=== PATIENT | female | born 1960 | race Caucasian/White ===

== ENCOUNTER → 2020-05-03 10:23 | Outpatient (BNVA) | payer MEDICAID, SELFPAY | PROVIDERS: Referring Provider Nurse Practitioner Family; Visit Provider Podiatrist Foot & Ankle Surgery | DX: M79.671 Pain in right foot (principal); M79.672 Pain in left foot; M19.072 Primary osteoarthritis, left ankle and foot; M19.071 Primary osteoarthritis, right ankle and foot; M21.41 Flat foot [pes planus] (acquired), right foot; M77.32 Calcaneal spur, left foot; M77.31 Calcaneal spur, right foot | CPT/HCPCS: 73630 ==

== ENCOUNTER 2020-08-02 15:32 | Outpatient (CLI) | payer MEDICAID, SELFPAY | END 2020-08-02 15:33 | disposition home or self-care (01) | LOC: SPT 08-03 09:33 | PROVIDERS: Visit Provider Specialist | DX: Z46.89 Encounter for fitting and adjustment of other specified devices (principal); G56.03 Carpal tunnel syndrome, bilateral upper limbs | CPT/HCPCS: 97760; L3908 ==

== ENCOUNTER → 2020-08-02 15:48 | Outpatient (BNVA) | payer MEDICAID, SELFPAY | PROVIDERS: Referring Provider Family Medicine; Visit Provider Specialist | DX: M25.532 Pain in left wrist (principal) | CPT/HCPCS: 73110 ==

== ENCOUNTER → 2020-08-08 14:27 | Outpatient (BNVA) | payer MEDICAID, SELFPAY | PROVIDERS: Visit Provider Specialist | DX: G56.01 Carpal tunnel syndrome, right upper limb (principal) | CPT/HCPCS: 87635 ==

== ENCOUNTER → 2020-12-14 10:23 | Outpatient (BNVA) | payer MEDICAID, SELFPAY | PROVIDERS: Visit Provider Specialist | DX: Z01.812 Encounter for preprocedural laboratory examination (principal); Z20.822 Contact with and (suspected) exposure to COVID-19 | CPT/HCPCS: 87635 ==

== ENCOUNTER 2020-12-17 08:33 | Day surgery (SDC) | payer MEDICAID, SELFPAY ==
[2020-12-16 14:37] VITALS: BMI 33.9
[2020-12-17 08:48] VITALS: BP 104/70; PULSE 78; RESP 18; TEMP 36.5; O2SAT 99
[2020-12-17] MEDS: CELEcoxib 200 mg Capsule 400 MG PO (09:03)
--- NOTE | 2020-12-17 09:08 | P.HPUD_ITS ---
Surgery/Procedure H&P Update DATE OF PROCEDURE: December 17, 2020 DATE H&P PERFORMED: 12/01/20 H&P UPDATE INFORMATION: I have reviewed H&P completed within last 30 days, I have examined patient prior to procedure and H&P is in [facility] [place] EMR on date indicated PREOP DIAGNOSIS: Right carpal tunnel syndrome PLANNED PROCEDURE: Operation Date: 12/17/20 09:55 Proposed Procedures p right Carpal Tunnel Release 64220 g56.01(Right) - Lilian Alberto MD Related Problem List Diagnoses (1) Carpal tunnel syndrome on right:
[2020-12-17] MEDS: acetaminophen 1,000 MG/100 ML PIGGYBACK 400 MG IV (09:35)
[2020-12-17 09:38] LABS: Glucose Point of Care 197 mg/dL (70-110)
[2020-12-17] MEDS: sodium chloride 0.9% 1,000 ML 30 ML IV (09:40)
--- NOTE | 2020-12-17 09:46 | P.ANESASSM_ITS ---
Pre-Anesthetic Assessment Pre-Anesthetic Assessment: Height/Weight: Height 1.83 m Weight 113.398 kg Temp Pulse Resp BP Pulse Ox 97.7 F 78 18 104/70 99 12/17/20 08:48 12/17/20 08:48 12/17/20 08:48 12/17/20 08:48 12/17/20 08:48 Preop Diagnosis: Right carpal tunnel syndrome Proposed Procedure: Operation Date: 12/17/20 09:55 Proposed Procedures p right Carpal Tunnel Release 41192 g56.01(Right) - Lilian Alberto MD Was Beta Ronen taken within 24 hours: N/A Was Clonidine taken within 24 hours: N/A Last intake: Intake Last Liquid Date 12/17/20 Last Liquid Time 06:00 Last Solid Date 12/16/20 Last Solid Time 19:00 Social: Social History: No alcohol and No tobacco Exam: Pre-Anes Outpt Exam: alert, oriented x 3, clear to auscultation bila terally and regular rate & rhythm Airway: Submandibular: WNL Cervical ROM: WNL MP: 2 Dentition: Full CV/HEM: CV/HEM: CAD and HTN Metabolic: Metabolic: DM, Morbid obesity and Thyroid Anesthetic Plan: ASA status: 3 Anesthesia: MAC and Regional (specify below) (Ria springer) Risk of > 500 ml blood loss (7ml/kg in children): No Meds/Allergies Current Medications: Current Medications Generic Name Dose Route Start Last Admin Trade Name Freq PRN Reason Stop Dose Admin Sodium Chloride 1,000 mls @ 30 ml s/hr 12/17/20 08:45 12/17/20 09:40 Sodium Chloride 0.9% IV 12/18/20 08:44 30 mls/hr .Q24H CHUY Administration PFSH Anesthesia PFSH: Medical History CHF (congestive heart failure) History of sepsis Hypercholesteremia Hypertension Leg length discrepancy Primary osteoarthritis of hips, bilateral Thyroid disease Surgical History 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 Family History Other Cancer Diabetes Hypertension Stroke Denies family history of CAD (coronary artery disease) Clotting disorder Dementia Hyperlipidemia Psychiatric illness Chronic kidney disease (CKD) Suicide Anesthesia complication Bleeding disorder Family history of premature coronary artery disease Lung disease Social History Smoking and tobacco status: former smoker Alcohol intake: former Lives independently: Yes Household members: spouse Marital status: Number of children: 2 Data Anesthesia Other Labs: Laboratory Results - last 48 hr 12/17/20 09:30 POC Glucose 197 H Cardiac Studies: No Data to Display
[2020-12-17 10:25] VITALS: BP 105/62; PULSE 80; RESP 16; TEMP 36.7; O2SAT 99
[2020-12-17 10:30] VITALS: BP 114/66; PULSE 65; RESP 16; O2SAT 97
--- NOTE | 2020-12-17 10:30 | P.OP_ITS ---
Operative Report Date of procedure: December 17, 2020 Pre-op Diagnosis: Right carpal tunnel syndrome Post-op diagnosis: same Procedure Done: Right Carpal Tunnel Release Implants: None Specimens removed/disposition: None Pathology: none sent Surgeon: Lilian Alberto Roller Hand: None Anesthesia: MAC (With [place] Block, ASA 3) Estimated blood loss (mL): 5 Tourniquet time (min): 31 Tourniquet time: At 250 mmHg IV fluids (mL): 300 Urine output (mL): 0 Urine output: No Ortez Complications: None Findings: Compression across the carpal canal Condition: stable Disposition: PACU (Then discharged to same-day surgery and subsequent discharge to home) Brief History: This 60-year-old woman presented with complaints of right and left carpal tunnel syndrome. She had significant numbness and tingling with limitations in activities of daily living secondary to the numbness in her hands. Hands are painful for her. After discussion, she wished to proceed with carpal tunnel release. Risks and complications were discussed with her. Consents were signed preoperatively and questions were answered. Procedure: The patient was brought to the operating theater. The patient had a Ria block with MAC, ASA 3. The tourniquet was elevated to 250 mmHg for a total tourniquet time of 31 minutes. The patient was also given Ancef 2 g preoperatively. The arm was then prepped and draped with DuraPrep in usual fashion with the arm draped free. A surgical pause was performed. At the time, the surgical pause, we confirmed the site and side of surgery. We also confirmed the patient's identity, appropriate and timely administration of preoperative antibiotics and preoperative surgical markings. An incision was then made along the thenar crease. The incision crossed the wrist joint in a curvilinear fashion. Dissection continued through skin and soft tissues using a scalpel. The palmaris longus was identified along with the transverse carpal ligament. Each of these was released carefully to avoid injury to the median nerve. We were able to dissect gently into the carpal canal which was noted to be quite tight with significant compression across the median nerve. The nerve was visualized and was an hourglass shape. The canal was subsequently palpated to assure there was no bony encroachment upon the canal. There was a quite thickened fibrous tissue within the canal, and this was opened longitudinally as well. The canal was then palpated distally and proximally to assure that my small finger was passed easily without impingement. Finding this to be so, attention was directed to closure. The wound was irrigated with ropivacaine plain. It was then closed with 3-0 nylon in an interrupted mattress fashion. Sterile dressing was then placed consisting of OpSite, fluffed fluffs, sterile soft roll, a volar splint, and an Michael wrap. The tourniquet was released after 31 minutes. There were no complications. There were no specimens. The procedure was well tolerated. Plan is the patient will be discharged home. Associated Problem List Diagnoses (1) Carpal tunnel syndrome on right:
[2020-12-17 10:35] VITALS: BP 114/66; PULSE 61; RESP 18; TEMP 36.5; O2SAT 96
[2020-12-17 10:45] VITALS: BP 128/71; PULSE 62; RESP 18; TEMP 36.2; O2SAT 97
[2020-12-17] MEDS: HYDROcodone-acetaminophen 5-325 mg Tablet 1 TAB PO (11:02)
[2020-12-17 11:13] VITALS: BP 122/68; PULSE 70; RESP 18; TEMP 36.6; O2SAT 96
--- NOTE | 2020-12-17 14:22 | ANE.PACU2 ---
Inpatient post-anesthesia follow up: Airway intact: Yes Vital signs: Temperature 97.8 F Pulse Rate 70 Respiratory Rate 18 Blood Pressure 122/68 Pulse Oximetry 96 Oxygen Delivery Me thod Room Air Oxygen Flow Rate Fraction of Inspir ed Oxygen Hydration adequate: Yes Nausea and vomiting: No Pain level: 1 Mental status: Baseline
== END 2020-12-17 11:39 | disposition home or self-care (01) ==
PROVIDERS: Visit Provider Specialist
PROC: (CPT 64721; principal; 2020-12-17 09:45)
DX: G56.01 Carpal tunnel syndrome, right upper limb (principal); I25.10 Atherosclerotic heart disease of native coronary artery without angina pectoris; I11.0 Hypertensive heart disease with heart failure; I50.9 Heart failure, unspecified; E11.9 Type 2 diabetes mellitus without complications; E66.01 Morbid (severe) obesity due to excess calories; Z68.33 Body mass index [BMI] 33.0-33.9, adult; E78.00 Pure hypercholesterolemia, unspecified; Z87.891 Personal history of nicotine dependence; Z79.82 Long term (current) use of aspirin
CPT/HCPCS: 64721; 36416; 82962; 96365; J0690; J2250; J2704; J3010; J3490; J7030

== ENCOUNTER → 2021-03-29 10:59 | Outpatient (BNVA) | payer MEDICAID, SELFPAY | PROVIDERS: Visit Provider Specialist | DX: G56.01 Carpal tunnel syndrome, right upper limb (principal) | CPT/HCPCS: 73110 ==

== ENCOUNTER → 2021-06-06 15:30 | Outpatient (BNVA) | payer MEDICAID, SELFPAY | PROVIDERS: Visit Provider Specialist | DX: G56.02 Carpal tunnel syndrome, left upper limb (principal) | CPT/HCPCS: 87635 ==

== ENCOUNTER 2021-06-10 05:49 | Day surgery (SDC) | payer MEDICAID, SELFPAY ==
[2021-06-09 13:34] VITALS: BMI 32.5
[2021-06-10] VITALS (8 sets, daily range): BP systolic 107–169; BP diastolic 62–77; PULSE 65–79; RESP 12–21; TEMP 34.7–36.8; O2SAT 93–99
--- NOTE | 2021-06-10 06:50 | P.HPUD_ITS ---
Surgery/Procedure H&P Update DATE OF PROCEDURE: June 10, 2021 DATE H&P PERFORMED: 06/06/21 H&P UPDATE INFORMATION: I have reviewed H&P completed within last 30 days, I have examined patient prior to procedure, No changes to prior documentation and H&P is in [facility] [place] EMR on date indicated PREOP DIAGNOSIS: Left carpal tunnel syndrome PLANNED PROCEDURE: Operation Date: 06/10/21 07:00 Proposed Procedures p Carpal Tunnel Release [id number] G56.00(Left) - Lilian Alberto MD Related Problem List Diagnoses (1) Carpal tunnel syndrome on left:
[2021-06-10] MEDS: CELEcoxib 200 mg Capsule 400 MG PO (07:00)
[2021-06-10] MEDS: sodium chloride 0.9% 1,000 ML 30 ML IV (07:02)
[2021-06-10] MEDS: acetaminophen 1,000 MG/100 ML PIGGYBACK 400 MG IV (07:02)
--- NOTE | 2021-06-10 07:07 | PC.NURSE ---
IV inserted with ultrasound assistance by Dr. Quintana.
--- NOTE | 2021-06-10 07:10 | ANES.PREANE2 ---
Pre-Anesthetic Assessment Pre-Anesthetic Assessment: Height/Weight: Height 1.83 m Weight 108.862 kg Temp Pulse Resp BP Pulse Ox 94.5 F L 79 16 142/77 99 06/10/21 06:28 06/10/21 06:28 06/10/21 06:28 06/10/21 06:28 06/10/21 06:28 Preop Diagnosis: Left carpal tunnel syndrome Proposed Procedure: Operation Date: 06/10/21 07:00 Proposed Procedures p Carpal Tunnel Release 68075 G56.00(Left) - Lilian Alberto MD Familial anesthetic complications: None Was Beta Ronen taken within 24 hours: Yes Was Clonidine taken within 24 hours: N/A Last intake: Intake Last Liquid Date 06/09/21 Last Liquid Time 19: Last Solid Date 06/09/21 Last Solid Time 19:00 Social: Social History: No alcohol and No tobacco Exam: Pre-Anes Outpt Exam: alert, oriented x 3, clear to auscultation bilaterally and regular rate & rhythm Airway: MP: 2 Dentition: Full CV/HEM: CV/HEM: CAD, CHF and HTN Metabolic: Metabolic: Morbid obesity and Thyroid Anesthetic Plan: ASA status: 3 Anesthesia: General Risk of > 500 ml blood loss (7ml/kg in children): No PFSH Anesthesia PFSH: Medical History CHF (congestive heart failure) History of sepsis Hypercholesteremia Hypertension Leg length discrepancy Primary osteoarthritis of hips, bilateral Thyroid disease Surgical History 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
[2021-06-10 07:11] LABS: Glucose Point of Care 156 mg/dL (70-110)
[2021-06-10] MEDS: ondansetron 2 mg/ML SDV 2 mL 4 MG IVP (08:50)
--- NOTE | 2021-06-10 09:07 | P.OP_ITS ---
Operative Report Date of procedure: June 10, 2021 Pre-op Diagnosis: Left carpal tunnel syndrome Post-op diagnosis: same Post-op Findings: Significant compression across the median nerve. Procedure Done: Left carpal tunnel release Pathology: none sent Surgeon: Lilian Alberto Anesthesia: General (LMA, ASA 3, following difficult IV) Estimated blood loss (mL): 0 Tourniquet time (min): 26 Tourniquet time: At 250 mmHg IV fluids (mL): 400 Urine output (mL): 0 Urine output: No Ortez Complications: None Findings: Very tight carpal canal with significant compression across the median nerve and resultant discoloration and hourglass deformity Condition: stable Disposition: PACU (Then to same-day surgery for discharge to home) Brief History: This 61-year-old woman presented with complaints of left carpal tunnel syndrome which impacted her activities of daily living. This was noted to be quite severe regarding the symptoms. She has previously undergone right carpal tunnel release and has recovered from this. After discussion, the patient did wish to proceed with left carpal tunnel release. Risks and complications were discussed with her. Questions were answered. Consents were signed. She was scheduled for the above procedure. Procedure: The patient was brought to the operating theater. The patient had a general anesthetic with LMA, ASA 3. A general anesthetic was given rather than a [place] block secondary to difficult IV access. The tourniquet was elevated to 250 mmHg for a total tourniquet time of 26 minutes. The patient was also given Ancef 2 g preoperatively. The arm was then prepped and draped with DuraPrep in usual fashion with the arm draped free. A surgical pause was performed. At the time of the surgical pause, we confirmed the site and side of surgery. We also confirmed the patient's identity, appropriate and timely administration of preoperative an tibiotics and preoperative surgical markings. An incision was then made along the thenar crease. The incision crossed the wrist joint in a curvilinear fashion. Dissection continued through skin and soft tissues using a scalpel. The palmaris longus was identified along with the transverse carpal ligament. Each of these was released carefully to avoid injury to the median nerve. We were able to dissect gently into the carpal canal which was noted to be quite tight with significant compression across the median nerve. The nerve was visualized and was an hourglass shape. The canal was subsequently palpated to assure there was no bony encroachment upon the canal. There was a quite thickened fibrous tissue within the canal, and this was opened longitudinally as well. The canal was then palpated distally and proximally to assure that my small finger was passed easily without impingement. Finding this to be so, attention was directed to closure. The wound was irrigated with ropivacaine plain. It was then closed with 3-0 nylon in an interrupted mattress fashion. Sterile dressing was then placed consisting of Dermabond, OpSite, fluffed fluffs, sterile soft roll, a volar splint, and an Michael wrap. The tourniquet was released after 26 minutes. There were no complications. There were no specimens. The procedure was well tolerated. Plan is the patient will be discharged home. Associated Problem List Diagnoses (1) Carpal tunnel syndrome on left:
--- NOTE | 2021-06-10 12:24 | ANE.PACU2 ---
Inpatient post-anesthesia follow up: Airway intact: Yes Vital signs: Temperature 98.2 F Pulse Rate 65 Respiratory Rate 18 Blood Pressure 146/75 Pulse Oximetry 96 Oxygen Delivery Me thod Room Air Oxygen Flow Rate Fraction of Inspir ed Oxygen Hydration adequate: Yes Nausea and vomiting: No Pain level: 2 Mental status: Baseline
== END 2021-06-10 10:00 | disposition home or self-care (01) ==
PROVIDERS: PCP Family Medicine; Visit Provider Specialist
PROC: (CPT 64721; principal; 2021-06-10 07:00)
DX: M25.532 Pain in left wrist (principal); I10 Essential (primary) hypertension; E07.9 Disorder of thyroid, unspecified
CPT/HCPCS: 64721; 36416; 82962; 96365; J0690; J2250; J2405; J2704; J3010; J3490; J7030

== ENCOUNTER → 2021-08-10 12:41 | Outpatient (BNVA) | payer MEDICAID, SELFPAY | PROVIDERS: PCP Family Medicine; Visit Provider Internal Medicine | DX: M35.3 Polymyalgia rheumatica (principal); H35.30 Unspecified macular degeneration; Z11.59 Encounter for screening for other viral diseases; Z11.1 Encounter for screening for respiratory tuberculosis; E11.9 Type 2 diabetes mellitus without complications; Z79.52 Long term (current) use of systemic steroids; Z87.891 Personal history of nicotine dependence | CPT/HCPCS: 99204 ==

== ENCOUNTER 2021-08-11 14:06 | Outpatient (CLI) | payer MEDICAID, SELFPAY ==
[2021-08-11 15:40] LABS: Creatine Phosphokinase 85 U/L (26-192)
[2021-08-11 15:52] LABS: Bilirubin Urine Neg (Negative); Blood Urine Neg (Negative); Glucose Urine UA 1+ (Normal); Ketones Urine Negative (Negative); Nitrate Urine Negative (Negative); Protein Urine Neg (Negative); Specific Gravity, Urine 1.005 (1.005-1.030); Urine Appearance Clear (CLEAR); Urine Color Straw (Yellow); Urobilinogen Urine Norm (Negative); pH Urine 7 (5-7)
[2021-08-11 15:53] LABS: Add Urine Microscopic? YES; Leukocyte Esterase Urine 1+ (Negative); WBC Urine 0-4 /hpf (0-5)
[2021-08-11 16:03] LABS: Hepatitis B Core AB, Total Non-Reactive (Nonreactive); Hepatitis B Surface Antigen Non-Reactive (Nonreactive); Hepatitis C Virus Antibody Reactive (Nonreactive)
[2021-08-11 21:38] LABS: C Reactive Protein 3.3 mg/L (0.0-4.9)
[2021-08-12 11:17] LABS: COMPLEMENT COMPONENT C3C 125 mg/dL (83-193); COMPLEMENT COMPONENT C4C 40 mg/dL (15-57)
[2021-08-12 12:52] LABS: Cyclic Citrullinated Peptide <16 UNITS
[2021-08-12 13:22] LABS: COMPLEMENT, TOTAL (CH50) >60 U/mL (31-60)
[2021-08-13 09:14] LABS: HEP C RNA Viral Load Quant <1.18 NOT DETECTED Log IU/mL (NOT DETECTED); HEP C RNA Viral Load Quant <15 NOT DETECTED IU/mL (NOT DETECTED)
[2021-08-15 12:17] LABS: Quantiferon Mitogen >10.00 IU/mL; Quantiferon Nil 0.01 IU/mL; Quantiferon TB Gold NEGATIVE (NEGATIVE)
[2021-08-17 15:07] LABS: THYROID PEROXIDASE ANTIBODIES 49 IU/mL (<9)
[2021-08-18 13:27] LABS: CENTROMERE B ANTIBODY <1.0 NEG AI (<1.0 NEG); JO-1 ANTIBODY <1.0 NEG AI (<1.0 NEG); RNP ANTIBODY <1.0 NEG AI (<1.0 NEG); SCL-70 ANTIBODY <1.0 NEG AI (<1.0 NEG); SJOGREN'S ANTIBODY (SS-A) <1.0 NEG AI (<1.0 NEG); SM ANTIBODY <1.0 NEG AI (<1.0 NEG); SS-B <1.0 NEG AI (<1.0 NEG)
[2021-08-18 15:33] LABS: ANA SCREEN, IFA NEGATIVE (NEGATIVE)
== END 2021-08-11 14:07 | disposition home or self-care (01) ==
PROVIDERS: PCP Family Medicine; Visit Provider Internal Medicine
DX: M79.643 Pain in unspecified hand (principal); Z11.59 Encounter for screening for other viral diseases; Z11.1 Encounter for screening for respiratory tuberculosis
CPT/HCPCS: 81001; 82550; 83516; 84182; 86140; 86160; 86162; 86200; 86235; 86255; 86376; 86480; 86704; 86803; 87340; 87522

== ENCOUNTER → 2021-08-23 10:18 | Outpatient (BNVA) | payer MEDICAID, SELFPAY | PROVIDERS: PCP Family Medicine; Visit Provider Podiatrist Foot & Ankle Surgery | DX: M79.671 Pain in right foot (principal) | CPT/HCPCS: 73630 ==

== ENCOUNTER → 2021-08-31 12:43 | Outpatient (BNVA) | payer MEDICAID, SELFPAY | PROVIDERS: PCP Family Medicine; Visit Provider Internal Medicine | DX: M35.3 Polymyalgia rheumatica (principal); M79.643 Pain in unspecified hand; R76.8 Other specified abnormal immunological findings in serum; H35.30 Unspecified macular degeneration | CPT/HCPCS: 99214 ==

== ENCOUNTER 2021-09-20 15:04 | Outpatient (CLI) | payer MEDICAID, SELFPAY ==
[2021-09-20 15:40] LABS: Basophils % 0.3 %; Eosinophils % 0.2 %; Hematocrit 40.1 % (37.0-47.0); Hemoglobin 11.9 g/dL (11.5-15.3); Lymphocytes % 9.1 %; Mean Corpuscular HGB Conc 29.7 g/dL (30.0-36.0); Mean Corpuscular Hemoglobin 27.2 pg (28.0-34.0); Mean Corpuscular Volume 91.6 fl (81-99); Mean Platelet Volume 10.2 fL (7.4-10.4); Monocytes # 0.3 10^3/uL (0.2-0.9); Monocytes % 2.9 %; Nucleated Red Blood Cells % 0 %; Platelet Count 210 10^3/cmm (130-400); Red Blood Count 4.38 10^6/uL (4.1-5.3); Red Cell Distribution Width 17.2 % (12.1-15.1); White Blood Count 11.5 10^3/uL (4.0-10.0)
[2021-09-20 15:55] LABS: Erythrocyte Sedimentation Rate 11 mm/hr (0-15)
--- NOTE | 2021-09-20 16:00 | XR_ITS ---
WS: [id number] Right hand, 2 views, 09/20/2021 Clinical Data: M35.3 - Polymyalgia rheumatica Comparison: Right wrist, 03/29/2021. Findings: No fractures or dislocations are seen. The soft tissues are unremarkable. The joint space s are normal No periarticular demineralization or calcifications are seen. XR/XR hand RT 2V [id number] Impression: Negative right hand.
--- NOTE | 2021-09-20 16:00 | XR_ITS ---
WS: [email or web address] Left hand, 2 views, 09/20/2021 Clinical Data: M35.3 - Polymyalgia rheumatica Comparison: Left wrist, 08/02/2020. Findings: No fractures or dislocations are seen. The soft tissues are unremarkable. The joint spaces are normal No periarticular demineralization or calcifications are seen. XR/XR hand LT 2V [id number] Impression: Negative left hand.
--- NOTE | 2021-09-20 16:00 | XR_ITS ---
WS: [id number] Sacroiliac joints, 3 views, 09/20/2021 Clinical Data: L40.9 - Psoriasis, unspecified Comparison: None. Findings: The SI joints are normal in width. No erosion, sclerosis or destruction is seen. There are no fractur es or dislocations. There is unilateral left laminar defect at L5 which is a normal variation. The adjacent visualized pelvis and hips are unremarkable. XR/XR sacroiliac jts m 3V [id number] Impression: Negative SI joints.
[2021-09-20 16:06] LABS: Alanine Aminotransferase 33 U/L (0-33); Albumin Level 3.9 g/dL (3.5-5.2); Alkaline Phosphatase 62 IU/L (35-105); Anion Gap 16.6 (5-19); Aspartate Amino Transferase 27 U/L (0-32); Blood Urea Nitrogen 29 mg/dL (6-20); C Reactive Protein 4.2 mg/L (0.0-4.9); Calcium 9.1 mg/dL (8.5-10.5); Carbon Dioxide 21 mmol/L (22-29); Chloride 103 mmol/L (98-107); Globulin 2.4 g/dL (1.3-4.6); Glomerular Filtration Rate 64.1 mL/min (90-130); Glucose 116 mg/dL (65-115); Osmolality Calculated 289 mOsm/kg (285-295); Potassium 4.6 mmol/L (3.5-5.1); Sodium 136 mmol/L (136-145); Total Bilirubin 0.3 mg/dL (0.15-1.2); Total Protein 6.3 g/dL (6.6-8.7)
== END 2021-09-20 15:05 | disposition home or self-care (01) ==
LOC: RAD 15:05 → LAB 15:07
PROVIDERS: PCP Family Medicine; Visit Provider Internal Medicine
DX: M25.50 Pain in unspecified joint (principal); M35.3 Polymyalgia rheumatica; Z79.899 Other long term (current) drug therapy; H35.30 Unspecified macular degeneration; L40.9 Psoriasis, unspecified; R76.8 Other specified abnormal immunological findings in serum
CPT/HCPCS: 36415; 72202; 73120; 80053; 85025; 85651; 86140

== ENCOUNTER → 2021-10-19 13:59 | Outpatient (BNVA) | payer MEDICAID, SELFPAY | PROVIDERS: PCP Family Medicine; Visit Provider Internal Medicine | DX: M35.3 Polymyalgia rheumatica (principal); R21 Rash and other nonspecific skin eruption; H35.30 Unspecified macular degeneration; R63.5 Abnormal weight gain; Z68.34 Body mass index [BMI] 34.0-34.9, adult; Z87.891 Personal history of nicotine dependence | CPT/HCPCS: 99214 ==

== ENCOUNTER 2021-10-21 13:38 | Outpatient (CLI) | payer MEDICAID, SELFPAY ==
[2021-10-21 14:29] LABS: Basophils % 0.2 %; Hematocrit 40.4 % (37.0-47.0); Hemoglobin 12.6 g/dL (11.5-15.3); Lymphocytes # 1.4 10^3/uL (0.8-4.8); Lymphocytes % 11.6 %; Mean Corpuscular HGB Conc 31.2 g/dL (30.0-36.0); Mean Corpuscular Hemoglobin 28.8 pg (28.0-34.0); Mean Corpuscular Volume 92.2 fl (81-99); Mean Platelet Volume 10.7 fL (7.4-10.4); Monocytes # 0.4 10^3/uL (0.2-0.9); Monocytes % 2.9 %; Neutrophils # 10.47 10^3/uL (1.8-7.7); Neutrophils % 84.7 %; Nucleated Red Blood Cells % 0 %; Platelet Count 216 10^3/cmm (130-400); Red Blood Count 4.38 10^6/uL (4.1-5.3); Red Cell Distribution Width 17.1 % (12.1-15.1); White Blood Count 12.4 10^3/uL (4.0-10.0)
[2021-10-21 14:34] LABS: Erythrocyte Sedimentation Rate 10 mm/hr (0-15)
[2021-10-21 14:43] LABS: Add Urine Microscopic? YES; Bilirubin Urine Neg (Negative); Blood Urine Neg (Negative); Glucose Urine UA Norm (Normal); Ketones Urine Negative (Negative); Leukocyte Esterase Urine Negative (Negative); Nitrate Urine Negative (Negative); Protein Urine Neg (Negative); Urine Appearance Hazy (CLEAR); Urine Color Yellow (Yellow); Urobilinogen Urine Norm (Negative); pH Urine 6 (5-7)
[2021-10-21 14:44] LABS: Add Urine Culture? No; Bacteria Urine TRACE /hpf; RBC Urine 0-4 /hpf (0-2); Squamous Epithelial Cell Urine 0-4 /hpf (0-5); WBC Urine 0-4 /hpf (0-5)
[2021-10-21 14:49] LABS: Alanine Aminotransferase 23 U/L (0-33); Albumin Level 4.1 g/dL (3.5-5.2); Alkaline Phosphatase 58 IU/L (35-105); Anion Gap 18.6 (5-19); Aspartate Amino Transferase 23 U/L (0-32); Blood Urea Nitrogen 35 mg/dL (6-20); Calcium 8.4 mg/dL (8.5-10.5); Carbon Dioxide 24 mmol/L (22-29); Chloride 101 mmol/L (98-107); Globulin 2.7 g/dL (1.3-4.6); Glomerular Filtration Rate 50.8 mL/min (90-130); Glucose 247 mg/dL (65-115); Osmolality Calculated 304 mOsm/kg (285-295); Potassium 4.6 mmol/L (3.5-5.1); Sodium 139 mmol/L (136-145); Total Bilirubin 0.3 mg/dL (0.15-1.2); Total Protein 6.8 g/dL (6.6-8.7)
[2021-10-24 12:07] LABS: COMPLEMENT, TOTAL (CH50) >60 U/mL (31-60)
[2021-10-24 12:52] LABS: COMPLEMENT COMPONENT C3C 115 mg/dL (83-193); COMPLEMENT COMPONENT C4C 38 mg/dL (15-57)
[2021-10-24 15:09] LABS: THYROID PEROXIDASE ANTIBODIES 13 IU/mL (<9)
[2021-10-24 16:29] LABS: CENTROMERE B ANTIBODY <1.0 NEG AI (<1.0 NEG); JO-1 ANTIBODY <1.0 NEG AI (<1.0 NEG); RNP ANTIBODY <1.0 NEG AI (<1.0 NEG); SCL-70 ANTIBODY <1.0 NEG AI (<1.0 NEG); SJOGREN'S ANTIBODY (SS-A) <1.0 NEG AI (<1.0 NEG); SM ANTIBODY <1.0 NEG AI (<1.0 NEG); SS-B <1.0 NEG AI (<1.0 NEG)
[2021-10-24 16:44] LABS: ANA SCREEN, IFA NEGATIVE (NEGATIVE)
[2021-10-25 14:03] LABS: DNA AB (DS) CRITHIDIA,IFA NEGATIVE (NEGATIVE)
== END 2021-10-21 13:39 | disposition home or self-care (01) ==
LOC: LAB 13:39
PROVIDERS: PCP Family Medicine; Visit Provider Internal Medicine
DX: H35.30 Unspecified macular degeneration (principal); M35.3 Polymyalgia rheumatica; R21 Rash and other nonspecific skin eruption; R76.8 Other specified abnormal immunological findings in serum
CPT/HCPCS: 80053; 81001; 83516; 85025; 85651; 86140; 86160; 86162; 86235; 86255; 86376

== ENCOUNTER → 2021-10-31 09:30 | Outpatient (BNVA) | payer MEDICAID, SELFPAY | PROVIDERS: PCP Family Medicine; Visit Provider Podiatrist Foot & Ankle Surgery | DX: E11.42 Type 2 diabetes mellitus with diabetic polyneuropathy (principal); L60.3 Nail dystrophy; L84 Corns and callosities; M20.41 Other hammer toe(s) (acquired), right foot; M20.42 Other hammer toe(s) (acquired), left foot; M21.41 Flat foot [pes planus] (acquired), right foot; M21.42 Flat foot [pes planus] (acquired), left foot; M19.079 Primary osteoarthritis, unspecified ankle and foot; Z87.891 Personal history of nicotine dependence; M79.673 Pain in unspecified foot | CPT/HCPCS: 73630; 99214 ==

== ENCOUNTER → 2021-11-02 14:49 | Outpatient (BNVA) | payer MEDICAID, SELFPAY | PROVIDERS: PCP Family Medicine; Visit Provider Internal Medicine | DX: Z79.899 Other long term (current) drug therapy (principal); Z87.891 Personal history of nicotine dependence; M35.3 Polymyalgia rheumatica; H35.30 Unspecified macular degeneration | CPT/HCPCS: 99214 ==

== ENCOUNTER 2021-12-07 14:15 | Outpatient (CLI) | payer MEDICAID, SELFPAY ==
[2021-12-07 15:13] LABS: Basophils % 0.3 %; Hematocrit 42.7 % (37.0-47.0); Hemoglobin 13.6 g/dL (11.5-15.3); Lymphocytes # 1.4 10^3/uL (0.8-4.8); Lymphocytes % 9.7 %; Mean Corpuscular HGB Conc 31.9 g/dL (30.0-36.0); Mean Corpuscular Hemoglobin 29.2 pg (28.0-34.0); Mean Corpuscular Volume 91.6 fl (81-99); Mean Platelet Volume 10.9 fL (7.4-10.4); Monocytes # 0.3 10^3/uL (0.2-0.9); Neutrophils # 12.48 10^3/uL (1.8-7.7); Neutrophils % 87.5 %; Nucleated Red Blood Cells % 0 %; Platelet Count 259 10^3/cmm (130-400); Red Blood Count 4.66 10^6/uL (4.1-5.3); Red Cell Distribution Width 15.4 % (12.1-15.1); White Blood Count 14.3 10^3/uL (4.0-10.0)
[2021-12-07 15:44] LABS: Alanine Aminotransferase 20 U/L (0-33); Albumin Level 4.4 g/dL (3.5-5.2); Alkaline Phosphatase 66 IU/L (35-105); Anion Gap 16.5 (5-19); Aspartate Amino Transferase 20 U/L (0-32); Blood Urea Nitrogen 35 mg/dL (6-20); Calcium 9.4 mg/dL (8.5-10.5); Carbon Dioxide 24 mmol/L (22-29); Chloride 103 mmol/L (98-107); Globulin 2.9 g/dL (1.3-4.6); Glomerular Filtration Rate 56.7 mL/min (90-130); Glucose 141 mg/dL (65-115); Osmolality Calculated 298 mOsm/kg (285-295); Potassium 4.5 mmol/L (3.5-5.1); Sodium 139 mmol/L (136-145); Total Bilirubin 0.4 mg/dL (0.15-1.2); Total Protein 7.3 g/dL (6.6-8.7)
[2021-12-09 21:50] LABS: C Reactive Protein 3.2 mg/L (0.0-4.9)
== END 2021-12-07 14:16 | disposition home or self-care (01) ==
LOC: LAB 14:16
PROVIDERS: PCP Family Medicine; Visit Provider Internal Medicine
DX: Z79.899 Other long term (current) drug therapy (principal); M35.3 Polymyalgia rheumatica; E11.42 Type 2 diabetes mellitus with diabetic polyneuropathy; L60.3 Nail dystrophy; L84 Corns and callosities; M20.41 Other hammer toe(s) (acquired), right foot; M20.42 Other hammer toe(s) (acquired), left foot; M21.41 Flat foot [pes planus] (acquired), right foot; M21.42 Flat foot [pes planus] (acquired), left foot; M19.079 Primary osteoarthritis, unspecified ankle and foot; M79.671 Pain in right foot; M79.672 Pain in left foot
CPT/HCPCS: 80053; 85025; 86140; 99213; 99214

== ENCOUNTER → 2021-12-15 15:22 | Outpatient (BNVA) | payer MEDICAID, SELFPAY | PROVIDERS: PCP Family Medicine; Visit Provider Podiatrist Foot & Ankle Surgery | DX: L03.115 Cellulitis of right lower limb (principal); E11.42 Type 2 diabetes mellitus with diabetic polyneuropathy; L97.513 Non-pressure chronic ulcer of other part of right foot with necrosis of muscle; L03.90 Cellulitis, unspecified | CPT/HCPCS: 11043; 73630; 87070; 87075; 87077; 87186; 87205 ==

== ENCOUNTER → 2021-12-19 15:39 | Outpatient (BNVA) | payer MEDICAID, SELFPAY | PROVIDERS: PCP Family Medicine; Visit Provider Podiatrist Foot & Ankle Surgery | DX: E11.42 Type 2 diabetes mellitus with diabetic polyneuropathy (principal); L97.513 Non-pressure chronic ulcer of other part of right foot with necrosis of muscle; L03.90 Cellulitis, unspecified | CPT/HCPCS: 99214 ==

== ENCOUNTER → 2022-02-01 15:04 | Outpatient (BNVA) | payer MEDICAID, SELFPAY | PROVIDERS: PCP Family Medicine; Visit Provider Podiatrist Foot & Ankle Surgery | DX: L03.90 Cellulitis, unspecified (principal); E11.42 Type 2 diabetes mellitus with diabetic polyneuropathy; L97.513 Non-pressure chronic ulcer of other part of right foot with necrosis of muscle | CPT/HCPCS: 11042; 99214 ==

== ENCOUNTER → 2022-02-08 15:51 | Outpatient (BNVA) | payer MEDICAID, SELFPAY | PROVIDERS: PCP Family Medicine; Visit Provider Podiatrist Foot & Ankle Surgery | DX: M79.672 Pain in left foot (principal); E11.42 Type 2 diabetes mellitus with diabetic polyneuropathy; M20.41 Other hammer toe(s) (acquired), right foot; M14.672 Charcot's joint, left ankle and foot; M20.42 Other hammer toe(s) (acquired), left foot; M35.3 Polymyalgia rheumatica; H35.30 Unspecified macular degeneration; R21 Rash and other nonspecific skin eruption; N18.9 Chronic kidney disease, unspecified | CPT/HCPCS: 73630; 99214 ==

== ENCOUNTER → 2022-02-20 15:01 | Outpatient (BNVA) | payer MEDICAID, SELFPAY | PROVIDERS: PCP Family Medicine; Visit Provider Podiatrist Foot & Ankle Surgery | DX: E11.42 Type 2 diabetes mellitus with diabetic polyneuropathy (principal); M20.42 Other hammer toe(s) (acquired), left foot; M20.41 Other hammer toe(s) (acquired), right foot; M14.672 Charcot's joint, left ankle and foot | CPT/HCPCS: 28010; 73630; 99214 ==

== ENCOUNTER 2022-02-24 02:13 | Emergency (ER) | payer MEDICAID, SELFPAY ==
[2022-02-24 02:17] VITALS: BP 166/82; PULSE 75; RESP 16; TEMP 36.2; O2SAT 98; BMI 34.4
--- NOTE | 2022-02-24 02:19 | ECG_ITS ---
[facility] Test Date: 2022-02-24 Pat Name: Ananya Bains Department: Room: Gender: Female [employer]: : 1960 Requested By: Carolina Buenrostro Order Number: [id number] Reading MD: Michael Brown M.D. Measurements Intervals [place] Rate: 72 P: 13 MD: 207 QRS: -46 QRSD: 70 T: 82 QT: 368 QTc: 404 Interpretive Statements SINUS RHYTHM LOW QRS VOLTAGE IN EXTREMITY LEADS [QRS DEFLECTION < 0.5 mV IN LIMB LEADS] Possible INFERIOR MYOCARDIAL INFARCTION , PROBABLY OLD [40+ ms Q WAVE AND/OR ST/T ABNORMALITY IN II/aVF] ANTEROSEPTAL MYOCARDIAL INFARCTION , PROBABLY OLD [40+ ms Q WAVE IN V1-V4] No previous ECG available for comparison Electronically Signed On 02-25-2022 9:18:36 CDT by Michael Brown M.D. [email or web address]
--- NOTE | 2022-02-24 02:19 | CTR_ITS ---
PROCEDURE INFORMATION: Exam: CTA Chest With Contrast Exam date and time: 02/24/2022 2:42 AM Age: 61 years old Clinical indication: Pain and abnormal findings; Abnormal diagnostic tests; Elevated d-dimer; Shortness of breath; Chest pressure; Prior surgery; Surgery type: Cabg; Patient HX: C/O chest pain with SOB. Elevated d dimer. TECHNIQUE: Imaging protocol: Computed tomographic angiography of the chest with contrast. 3D rendering (Not supervised by radiologist): MIP and/or 3D reconstructed images were created by the technologist. Radiation optimization: All CT scans at this facility use at least one of these dose optimization techniques: automated exposure control; mA and/or kV adjustment per patient size (includes targeted exams where dose is matched to clinical indication); or iterative reconstruction. Contrast material: OMNI 350; Contrast volume: 82 ml; Contrast route: INTRAVENOUS (IV); COMPARISON: CR (CHEST, ) 02/24/2022 2:31 AM RADIATION DOSE METRICS: Total DLP (mGy-cm): 441.1 FINDINGS: Limitations: Mild motion artifact. Pulmonary arteries: Suboptimal pulmonary artery opacification with decreased visualization of the small peripheral pulmonary arteries. No definite vascular intraluminal filling defects to suggest large or central acute pulmonary embolism. Aorta: No acute abnormality. No aortic aneurysm or dissection. Lungs: Minimal to mild bilateral atelectasis. Small left basilar calcified granuloma. No consolidation. Pleural spaces: Unremarkable. No pneumothorax. No pleural effusion. Heart: Heart size is normal. Prior CABG. Heart RV/LV ratio: RV/LV ratio 0.75. Lymph nodes: Calcified left hilar lymph nodes. Bones/joints: No acute osseous abnormality. Sternotomy wires are seen. Soft tissues: No significant soft tissue abnormalities. CT/CT angio chest PE protcl [id number] IMPRESSION: 1. No definite vascular intraluminal filling defects to suggest large or central acute pulmonary embolism. A small peripheral PE cannot be completely excluded. 2. Prior CABG.
--- NOTE | 2022-02-24 02:19 | XRR_ITS ---
PROCEDURE INFORMATION: Exam: XR Chest Exam date and time: 02/24/2022 2:31 AM Age: 61 years old Clinical indication: Shortness of breath; Chest pressure; Prior surgery; Surgery type: Cabg; Patient HX: C/O chest pain with SOB TECHNIQUE: Imaging protocol: Radiologic exam of the chest. Views: 1 view. COMPARISON: No relevant prior studies available. FINDINGS: Tubes, catheters and devices: Monitor leads project over the chest. Lungs: Low lung volumes with minimal left basilar atelectasis. No consolidation. Pleural spaces: No significant costophrenic angle blunting. No pneumothorax. Heart/Mediastinum: Heart size is normal. Prior CABG. Bones/joints: Sternotomy wires are seen. XR/XR chest 1V portable [id number] IMPRESSION: Low lung volumes with minimal left basilar atelectasis.
--- NOTE | 2022-02-24 02:22 | ED_ITS ---
HPI - Chest Pain General: Chief Complaint: Recheck/Abnormal Lab/Rx Stated Complaint: Elevated D-Dimer/ R/O DVT Time Seen by Provider: 02/24/22 02:15 Source: patient and EMS Mode of arrival: EMS Limitations: no limitations History of Present Illness: 61-year-old female who is sent here from [facility] for DVT she states that over the day she had some palpitations along with some dyspnea and some mild chest pain she also had some swelling in her left lower leg and had a D-dimer that was elevated she has no complaints at this time denies any worsening proving factors. Associated symptoms: Reports dyspnea; Deny abdominal pain, fever(s), nausea or vomiting Review of Systems Const: Denies: fever(s), chills, body aches or change in appetite Eyes: Denies: blurry vision or eye discomfort ENMT: Denies: throat pain or dental pain Card: Denies: chest pain Resp: Reports: dyspnea GI: Denies: abdominal pain, nausea, vomiting or diarrhea : Denies: dysuria Musc: Denies: neck pain or back pain Skin/Breast: Denies: rash Neuro: Denies: headache(s) Psych: Denies: depression Parth/Lymph: Denies: easy bruising All/Imm: Denies: urticaria PFSH ED PFSH: Medical History CHF (congestive heart failure) History of sepsis Hypercholesteremia Hypertension Leg length discrepancy Primary osteoarthritis of hips, bilateral Thyroid disease Surgical History 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 Family History Sister Cancer Lupus Family/Other Cancer Father Diabetes Hypertension Rheumatoid arthritis Brother Diabetes Grandmother Diabetes Lupus maternal Mother Hyperlipidemia Hypertension Stroke A-Fib Denies family history of CAD (coronary artery disease) Clotting disorder Dementia Psychiatric illness Chronic kidney disease (CKD) Heart attack Suicide Anesthesia complication Bleeding disorder Family history of premature coronary artery disease Lung disease Social History Smoking and tobacco status: never smoked Alcohol intake: former Lives independently: Yes Household members: spouse Marital status: Number of children: 2 History of recent travel: No Physical Exam Const: COMMON NORMALS: patient oriented x3 HENMT: COMMON NORMALS: normocephalic and atraumatic HEAD & SCALP: normocephalic and atraumatic Eye: COMMON NORMALS: Equal, round and reactive pupils present and EOMs intact bilaterally PUPIL: Yes Equal, round and reactive pupils present Neck/C-Spine: COMMON NORMALS: full ROM and supple Chest: COMMONS NORMALS: normal inspection of the chest and normal palpation of entire chest wall Resp: COMMON NORMALS: normal respiratory effort, No retractions, No use of accessory muscles and clear to auscultation bilaterally AUSCULTATION: clear to auscultation bilaterally Cardio: COMMON NORMALS: regular rate, regular rhythm and No murmurs present (Cardio) RATE: regular rate RHYTHM: regular rhythm GI: COMMON NORMALS: Normal to inspection, nondistended, normoactive bowel sounds present, Soft to palpation, non-tender and no masses PALPATION: Yes Soft to palpation Extremity: COMMON NORMALS: full ROM NARRATIVE EXTREMITY EXAM: swelling to left leg Neuro: COMMON NORMALS: patient oriented x3, moves all extremities and no focal motor deficits Psych: COMMON NORMALS: mental status grossly normal, Normal thought process present and cooperative THOUGHT PROCESS: Normal thought process present Skin: COMMON NORMALS: no rashes or lesions noted and no wounds GENERAL SKIN EXAM: no rashes or lesions noted Course Vital Signs: Vital signs: Vital Signs Temperature 97.2 F L 02/24/22 02:17 Pulse Rate 68 02/24/22 02:51 Respiratory Rate 18 02/24/22 02:51 Blood Pressure 130/59 02/24/22 02:51 Pulse Oximetry 97 02/24/22 02:51 Oxygen Delivery Me thod 02/24/22 02:17 MDM - Chest Pain Medical Decision Making Patient presents here with left leg swelling with a rule out DVT ultrasound here is negative she had some slight dyspnea CT showed no other findings she also has hypertension she is to take her meds she is to follow-up with her PCP she is return if worsening she understands agrees plan. Lab Data : 02/24/22 02:34 02/24/22 02:34 Radiology Impressions Chest CTA 02/24/22 02:19 IMPRESSION: 1. No definite vascular intraluminal filling defects to suggest large or central acute pulmonary embolism. A small peripheral PE cannot be completely excluded. 2. Prior CABG. Chest X-Ray 02/24/22 02:19 IMPRESSION: Low lung volumes with minimal left basilar atelectasis. Venous Duplex 02/24/22 02:52 IMPRESSION: No evidence of deep vein thrombosis. Laboratory Results WBC 14.2 10^3/uL (4.0-10.0) H 02/24/22 02:34 RBC 4.17 10^6/uL (4.1-5.3) 02/24/22 02:34 Hgb 12.1 g/dL (11.5-15.3) 02/24/22 02:34 Hct 38.9 % (37.0-47.0) 02/24/22 02:34 MCV 93.3 fl (81-99) 02/24/22 02:34 MCH 29.0 pg (28.0-34.0) 02/24/22 02:34 MCHC 31.1 g/dL (30.0-36.0) 02/24/22 02:34 RDW 13.6 % (12.1-15.1) 02/24/22 02:34 Plt Count 213 10^3/cmm (130-400) 02/24/22 02:34 MPV 10.2 fL (7.4-10.4) 02/24/22 02:34 Neut % (Auto) 66.8 % 02/24/22 02:34 Lymph % (Auto) 23.7 % 02/24/22 02:34 Ransom % (Auto) 8.0 % 02/24/22 02:34 Eos % (Auto) 0.6 % 02/24/22 02:34 Baso % (Auto) 0.4 % 02/24/22 02:34 Neut # (Auto) 9.49 10^3/uL (1.8-7.7) H 02/24/22 02:34 Lymph # (Auto) 3.4 10^3/uL (0.8-4.8) 02/24/22 02:34 Ransom # (Auto) 1.1 10^3/uL (0.2-0.9) H 02/24/22 02:34 Eos # (Auto) 0.1 10^3/uL (0.0-0.8) 02/24/22 02:34 Baso # (Auto) 0.1 10^3/uL (0.0-0.1) 02/24/22 02:34 Nucleated RBC % (auto) 0 % 02/24/22 02:34 Nucleated RBCs # 0.0 /100WBC 02/24/22 02:34 Sodium 139 mmol/L (136-145) 02/24/22 02:34 Potassium 4.4 mmol/L (3.5-5.1) 02/24/22 02:34 Chloride 103 mmol/L (98-107) 02/24/22 02:34 Carbon Dioxide 25 mmol/L (22-29) 02/24/22 02:34 Anion Gap 15.4 (5-19) 02/24/22 02:34 BUN 33 mg/dL (6-20) H 02/24/22 02:34 Creatinine 1.1 mg/dL (0.5-0.9) H 02/24/22 02:34 GFR Calculation 50.8 mL/min (90-130) L 02/24/22 02:34 Glucose 232 mg/dL (65-115) H 02/24/22 02:34 Calculated Osmolality 303 mOsm/kg (285-295) H 02/24/22 02:34 Calcium 8.6 mg/dL (8.5-10.5) 02/24/22 02:34 Total Bilirubin 0.2 mg/dL (0.15-1.2) 02/24/22 02:34 AST 23 U/L (0-32) 02/24/22 02:34 ALT 18 U/L (0-33) 02/24/22 02:34 Alkaline Phosphatase 61 U/L (35-105) 02/24/22 02:34 Troponin T Baseline 28 ng/L (0-10) H 02/24/22 02:34 NT-Pro-B Natriuret Pep 945 pg/mL (0-125) H 02/24/22 02:34 Total Protein 6.6 g/dL (6.6-8.7) 02/24/22 02:34 Albumin 3.6 g/dL (3.5-5.2) 02/24/22 02:34 Globulin 3.0 g/dL (1.3-4.6) 02/24/22 02:34 EKG Data EKG 1: I personally reviewed and interpreted this EKG as follows: EKG interpretation date: 02/24/22 EKG interpretation time: 02:19 Interpretation: nsr hr [address] or t wave abnormalities qrs 70 qtc 392 Discharge Plan Discharge Patient Disposition: Home Clinical Impression: Left leg swelling, Hypertension Condition: Stable Prescriptions: No Action carvedilol 12.5 mg tablet 12.5 mg PO BID Rx Instructions: must administer with a meal/food furosemide 20 mg tablet 20 mg PO BID aspirin 81 mg tablet,chewable 81 mg PO DAILY (DME) Diabetic Shoes See Rx Instructions .ROUTE .MEDSUPPLY Qty: 1 0RF Rx Instructions: As directed ([facility]) COCK UP SPLINT See Rx Instructions .Route .MEDSUPPLY Qty: 2 0RF Rx Instructions: As directed ([facility]) Custom Molded Orthotics See Rx Instructions .Route .MEDSUPPLY Qty: 1 0RF Rx Instructions: As directed [facility] [employer] [facility] ([facility]) AFO to right See Rx Instructions .Route .MEDSUPPLY Qty: 1 0RF Rx Instructions: As directed by [facility] levothyroxine [Euthyrox] 88 mcg tablet 88 mcg PO DAILY Entresto 49-51 mg tablet 1 tab PO BID amlodipine 5 mg tablet 5 mg PO DAILY oxycodone-acetaminophen 5-325 mg tablet 1 tab PO TID PRN Centrum Silver Women 8 mg iron-400 mcg-300 mcg tablet 1 tab PO DAILY rosuvastatin 40 mg tablet 40 mg PO DAILY prednisone 10 mg tablet 10 mg PO DAILY prednisone 5 mg tablet 2.5 mg PO DAILY clindamycin HCl 300 mg capsule 300 mg PO TID 7 Days Qty: 21 0RF ciprofloxacin HCl 500 mg tablet 500 mg PO BID 7 Days Qty: 14 0RF doxycycline hyclate 100 mg capsule 100 mg PO BID Qty: 28 0RF Rx Instructions: Take 2 times a day for 14 days mupirocin 2 % ointment 1 applic topical BID Qty: 15 1RF mupirocin 2 % ointment 1 applic topical BID Qty: 22 0RF ([facility]) AFO to the left See Rx Instructions .Route .MEDSUPPLY Qty: 1 0RF Rx Instructions: As directed by [facility] folic acid 1 mg tablet 1 mg PO DAILY Qty: 30 3RF methotrexate sodium 2.5 mg tablet 10 mg PO .weekly Qty: 20 2RF spironolactone 25 mg Tablet 25 mg PO DAILY Discharge Orders: Discharge ED (Routine); Ordered 02/24/22 Ordered By: Carolina Buenrostro Referrals: Shaka Liu [Primary Care Provider] - 1-3 days Discharge Diet: Advance as tolerated Discharge Activity: Resume usual activity Patient Instructions: Leg Edema (ED), Hypertension (ED) Coding Level of Care Code ED [employer] for Chg Fwd Exam Comprehensive
[2022-02-24 02:44] LABS: Basophils # 0.1 10^3/uL (0.0-0.1); Basophils % 0.4 %; Eosinophils # 0.1 10^3/uL (0.0-0.8); Eosinophils % 0.6 %; Hematocrit 38.9 % (37.0-47.0); Hemoglobin 12.1 g/dL (11.5-15.3); Lymphocytes # 3.4 10^3/uL (0.8-4.8); Lymphocytes % 23.7 %; Mean Corpuscular HGB Conc 31.1 g/dL (30.0-36.0); Mean Corpuscular Volume 93.3 fl (81-99); Mean Platelet Volume 10.2 fL (7.4-10.4); Monocytes # 1.1 10^3/uL (0.2-0.9); Neutrophils # 9.49 10^3/uL (1.8-7.7); Neutrophils % 66.8 %; Nucleated Red Blood Cells % 0 %; Platelet Count 213 10^3/cmm (130-400); Red Blood Count 4.17 10^6/uL (4.1-5.3); Red Cell Distribution Width 13.6 % (12.1-15.1); White Blood Count 14.2 10^3/uL (4.0-10.0)
--- NOTE | 2022-02-24 02:44 | PC.NURSE ---
2nd troponin that was drawn at [facility] was reported at 27.27 via phone call.
[2022-02-24 02:51] VITALS: BP 130/59; PULSE 68; RESP 18; O2SAT 97
--- NOTE | 2022-02-24 02:52 | USR_ITS ---
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 Prior surgery; Surgery date: 6+ months; Additional info: Leg swelling TECHNIQUE: Imaging protocol: Real-time Duplex ultrasound of the Left Lower Extremity with 2-D resendez scale, color Doppler flow and spectral waveform analysis with image documentation. Limited exam focused on the left lower extremity veins. COMPARISON: CR XR foot LT min 3V* [id number] 02/20/2022 3:03 PM FINDINGS: Left deep veins: Unremarkable. The left common femoral, femoral, proximal profunda femoral, popliteal and visualized calf veins are patent without thrombus. Normal Doppler waveforms. Normal compressibility and/or augmentation response. Left superficial veins: Unremarkable. Saphenofemoral junction is patent without thrombus. Soft tissues: No significant soft tissue abnormalities, US/[place] [id number] IMPRESSION: No evidence of deep vein thrombosis.
[2022-02-24] MEDS: iohexol 350 mg/mL 100 mL Btl IV (02:54)
[2022-02-24 03:09] LABS: Troponin(5th) Baseline 28 ng/L (0-10)
[2022-02-24 03:22] LABS: Alanine Aminotransferase 18 U/L (0-33); Albumin Level 3.6 g/dL (3.5-5.2); Alkaline Phosphatase 61 U/L (35-105); Blood Urea Nitrogen 33 mg/dL (6-20); Calcium 8.6 mg/dL (8.5-10.5); Carbon Dioxide 25 mmol/L (22-29); Chloride 103 mmol/L (98-107); Creatinine Clr Calc Pharmacy 78.1907; Glomerular Filtration Rate 50.8 mL/min (90-130); Glucose 232 mg/dL (65-115); NT Pro B Type Natriuretic Pept 945 pg/mL (0-125); Osmolality Calculated 303 mOsm/kg (285-295); Sodium 139 mmol/L (136-145); Total Bilirubin 0.2 mg/dL (0.15-1.2); Total Protein 6.6 g/dL (6.6-8.7)
[2022-02-24 03:31] LABS: Anion Gap 15.4 (5-19); Aspartate Amino Transferase 23 U/L (0-32); Potassium 4.4 mmol/L (3.5-5.1)
[2022-02-24 04:09] VITALS: BP 142/63; PULSE 68; RESP 18; O2SAT 97
== END 2022-02-24 04:10 | disposition home or self-care (01) ==
PROVIDERS: Emergency Provider Emergency Medicine; PCP Family Medicine
DX: M79.89 Other specified soft tissue disorders (principal); I10 Essential (primary) hypertension; Z79.82 Long term (current) use of aspirin; I11.0 Hypertensive heart disease with heart failure; I50.9 Heart failure, unspecified; Z96.653 Presence of artificial knee joint, bilateral
CPT/HCPCS: 71045; 71275; 80053; 83880; 84484; 85025; 93005; 93971; 99285; Q9967

== ENCOUNTER → 2022-02-27 09:59 | Outpatient (BNVA) | payer MEDICAID, SELFPAY | PROVIDERS: PCP Family Medicine; Visit Provider Podiatrist Foot & Ankle Surgery | DX: E11.42 Type 2 diabetes mellitus with diabetic polyneuropathy (principal); M20.41 Other hammer toe(s) (acquired), right foot; M14.672 Charcot's joint, left ankle and foot | CPT/HCPCS: 99213; 99214 ==

== ENCOUNTER → 2022-03-28 09:12 | Outpatient (BNVA) | payer MEDICAID, SELFPAY | PROVIDERS: PCP Family Medicine; Visit Provider Psychiatry & Neurology Psychiatry | DX: F41.1 Generalized anxiety disorder (principal) | CPT/HCPCS: 80061; 83036 ==

== ENCOUNTER → 2022-04-04 10:00 | Outpatient (BNVA) | payer MEDICAID, SELFPAY ==
[2022-04-07 16:35] VITALS: BP 130/67; BMI 35.4
== END ==
PROVIDERS: PCP Family Medicine; Visit Provider Internal Medicine
DX: E11.42 Type 2 diabetes mellitus with diabetic polyneuropathy (principal); E03.9 Hypothyroidism, unspecified; E78.2 Mixed hyperlipidemia; I50.9 Heart failure, unspecified; Z79.4 Long term (current) use of insulin
CPT/HCPCS: 99204

== ENCOUNTER → 2022-05-01 10:11 | Outpatient (BNVA) | payer MEDICAID, SELFPAY ==
[2022-04-07 16:35] VITALS: BP 130/67; BMI 35.4
== END ==
PROVIDERS: PCP Family Medicine; Visit Provider Podiatrist Foot & Ankle Surgery
DX: M14.672 Charcot's joint, left ankle and foot (principal); E11.42 Type 2 diabetes mellitus with diabetic polyneuropathy; M20.41 Other hammer toe(s) (acquired), right foot; Z79.4 Long term (current) use of insulin
CPT/HCPCS: 73630; 77077; 99214

== ENCOUNTER → 2022-05-09 14:17 | Outpatient (BNVA) | payer MEDICAID, SELFPAY ==
[2022-04-07 16:35] VITALS: BP 130/67; BMI 35.4
== END ==
PROVIDERS: PCP Family Medicine; Visit Provider Internal Medicine
DX: M35.3 Polymyalgia rheumatica (principal); H35.30 Unspecified macular degeneration
CPT/HCPCS: 99213

== ENCOUNTER → 2022-07-05 13:14 | Outpatient (BNVA) | payer MEDICAID, SELFPAY ==
[2022-04-07 16:35] VITALS: BP 130/67; BMI 35.4
== END ==
PROVIDERS: PCP Family Medicine; Visit Provider Podiatrist Foot & Ankle Surgery
DX: M14.672 Charcot's joint, left ankle and foot (principal); E11.42 Type 2 diabetes mellitus with diabetic polyneuropathy; M20.41 Other hammer toe(s) (acquired), right foot; Z79.4 Long term (current) use of insulin
CPT/HCPCS: 73630; 99214

== ENCOUNTER → 2022-08-08 14:14 | Outpatient (BNVA) | payer MEDICAID, SELFPAY ==
[2022-04-07 16:35] VITALS: BP 130/67; BMI 35.4
== END ==
PROVIDERS: PCP Family Medicine; Visit Provider Internal Medicine
DX: M35.3 Polymyalgia rheumatica (principal); H35.30 Unspecified macular degeneration; Z79.52 Long term (current) use of systemic steroids
CPT/HCPCS: 99213

== ENCOUNTER → 2022-08-22 15:15 | Outpatient (BNVA) | payer MEDICAID, SELFPAY ==
[2022-04-07 16:35] VITALS: BP 130/67; BMI 35.4
== END ==
PROVIDERS: PCP Family Medicine; Visit Provider Internal Medicine
DX: E11.42 Type 2 diabetes mellitus with diabetic polyneuropathy (principal); E78.2 Mixed hyperlipidemia; E03.9 Hypothyroidism, unspecified; I21.9 Acute myocardial infarction, unspecified; I50.9 Heart failure, unspecified; Z79.4 Long term (current) use of insulin; Z79.890 Hormone replacement therapy
CPT/HCPCS: 99214

== ENCOUNTER → 2022-08-31 14:54 | Outpatient (BNVA) | payer MEDICAID, SELFPAY ==
[2022-08-30 13:42] VITALS: BP 130/67; BMI 35.4
== END ==
PROVIDERS: PCP Family Medicine; Visit Provider Internal Medicine
DX: E11.42 Type 2 diabetes mellitus with diabetic polyneuropathy (principal); E11.319 Type 2 diabetes mellitus with unspecified diabetic retinopathy without macular edema; I21.9 Acute myocardial infarction, unspecified; I50.9 Heart failure, unspecified; Z79.4 Long term (current) use of insulin; Z79.890 Hormone replacement therapy; E78.2 Mixed hyperlipidemia; E03.9 Hypothyroidism, unspecified
CPT/HCPCS: 99215

== ENCOUNTER → 2022-09-27 13:47 | Outpatient (BNVA) | payer MEDICAID, SELFPAY ==
[2022-08-30 13:42] VITALS: BP 130/67; BMI 35.4
== END ==
PROVIDERS: PCP Family Medicine; Visit Provider Podiatrist Foot & Ankle Surgery
DX: E11.621 Type 2 diabetes mellitus with foot ulcer (principal); L97.523 Non-pressure chronic ulcer of other part of left foot with necrosis of muscle; E11.42 Type 2 diabetes mellitus with diabetic polyneuropathy; Z79.4 Long term (current) use of insulin
CPT/HCPCS: 11043

== ENCOUNTER → 2022-10-10 08:33 | Outpatient (BNVA) | payer MEDICAID, SELFPAY ==
[2022-08-30 13:42] VITALS: BP 130/67; BMI 35.4
== END ==
PROVIDERS: PCP Family Medicine; Visit Provider Podiatrist Foot & Ankle Surgery
DX: E11.42 Type 2 diabetes mellitus with diabetic polyneuropathy (principal); M20.41 Other hammer toe(s) (acquired), right foot; E11.621 Type 2 diabetes mellitus with foot ulcer; L97.512 Non-pressure chronic ulcer of other part of right foot with fat layer exposed; Z79.84 Long term (current) use of oral hypoglycemic drugs; M14.672 Charcot's joint, left ankle and foot
CPT/HCPCS: 73630; 99214

== ENCOUNTER → 2022-10-25 15:01 | Outpatient (BNVA) | payer MEDICAID, SELFPAY ==
[2022-08-30 13:42] VITALS: BP 130/67; BMI 35.4
== END ==
PROVIDERS: PCP Family Medicine; Visit Provider Podiatrist Foot & Ankle Surgery
DX: E11.42 Type 2 diabetes mellitus with diabetic polyneuropathy (principal); M20.41 Other hammer toe(s) (acquired), right foot; M14.672 Charcot's joint, left ankle and foot; L97.512 Non-pressure chronic ulcer of other part of right foot with fat layer exposed; E11.621 Type 2 diabetes mellitus with foot ulcer; Z79.4 Long term (current) use of insulin
CPT/HCPCS: 11042

== ENCOUNTER → 2022-11-07 13:28 | Outpatient (BNVA) | payer MEDICAID, SELFPAY ==
[2022-08-30 13:42] VITALS: BP 130/67; BMI 35.4
== END ==
PROVIDERS: PCP Family Medicine; Visit Provider Internal Medicine
DX: E03.9 Hypothyroidism, unspecified (principal); M35.3 Polymyalgia rheumatica; M06.9 Rheumatoid arthritis, unspecified; H35.30 Unspecified macular degeneration
CPT/HCPCS: 36415; 73030; 80053; 81291; 83036; 84439; 84443; 85025; 85651; 86140; 99214

== ENCOUNTER → 2022-11-15 14:55 | Outpatient (BNVA) | payer MEDICAID, SELFPAY ==
[2022-08-30 13:42] VITALS: BP 130/67; BMI 35.4
== END ==
PROVIDERS: PCP Family Medicine; Visit Provider Podiatrist Foot & Ankle Surgery
DX: E11.42 Type 2 diabetes mellitus with diabetic polyneuropathy (principal); M20.41 Other hammer toe(s) (acquired), right foot; E11.621 Type 2 diabetes mellitus with foot ulcer; L97.512 Non-pressure chronic ulcer of other part of right foot with fat layer exposed; Z79.4 Long term (current) use of insulin; M14.672 Charcot's joint, left ankle and foot
CPT/HCPCS: 11042; 73630; 99213

== ENCOUNTER → 2022-11-30 14:07 | Outpatient (BNVA) | payer MEDICAID, SELFPAY ==
[2022-08-30 13:42] VITALS: BP 130/67; BMI 35.4
== END ==
PROVIDERS: PCP Family Medicine; Visit Provider Internal Medicine
DX: E11.42 Type 2 diabetes mellitus with diabetic polyneuropathy (principal); E11.319 Type 2 diabetes mellitus with unspecified diabetic retinopathy without macular edema; E78.2 Mixed hyperlipidemia; E03.9 Hypothyroidism, unspecified; D72.829 Elevated white blood cell count, unspecified; M06.9 Rheumatoid arthritis, unspecified; I50.9 Heart failure, unspecified; Z79.4 Long term (current) use of insulin; Z79.890 Hormone replacement therapy
CPT/HCPCS: 99214

== ENCOUNTER → 2022-12-06 14:21 | Outpatient (BNVA) | payer MEDICAID, SELFPAY ==
[2022-08-30 13:42] VITALS: BP 130/67; BMI 35.4
== END ==
PROVIDERS: PCP Family Medicine; Visit Provider Podiatrist Foot & Ankle Surgery
DX: E11.621 Type 2 diabetes mellitus with foot ulcer (principal); E11.42 Type 2 diabetes mellitus with diabetic polyneuropathy; L97.512 Non-pressure chronic ulcer of other part of right foot with fat layer exposed; M20.41 Other hammer toe(s) (acquired), right foot; M14.672 Charcot's joint, left ankle and foot; Z79.4 Long term (current) use of insulin
CPT/HCPCS: 11042

== ENCOUNTER 2022-12-08 12:39 | Outpatient (CLI) | payer MEDICAID, SELFPAY ==
[2022-08-30 13:42] VITALS: BP 130/67; BMI 35.4
--- NOTE | 2022-12-08 13:06 | MM_ITS ---
WS: [id number] BILATERAL 3D TOMOSYNTHESIS DIGITAL SCREENING MAMMOGRAPHY WITH CAD CLINICAL INFORMATION: SCREENING HISTORY: Screening mammogram. No current complaints. COMPARISON: August 30, 2021 TECHNIQUE: Bilateral CC and MLO views. FINDINGS: Scattered fibroglandular densities bilaterally. No suspicious focal mass, asymmetry, calcifications, or architectural distortion. No evidence of malignancy. Punctate and lucent centered calcifications MM/[place] [id number] IMPRESSION: BI-RADS: 2-Benign FOLLOW UP: 1 Year Follow-up Recommend return to annual screening mammography.
== END 2022-12-08 12:40 | disposition home or self-care (01) ==
LOC: RAD 12:41
PROVIDERS: PCP Family Medicine; Visit Provider Family Medicine
DX: Z12.31 Encounter for screening mammogram for malignant neoplasm of breast (principal)
CPT/HCPCS: 77063; 77067

== ENCOUNTER 2022-12-15 13:49 | Outpatient (CLI) | payer MEDICAID, SELFPAY ==
[2022-08-30 13:42] VITALS: BP 130/67; BMI 35.4
[2022-12-15 14:42] LABS: Anion Gap 15.8 (5-19); Blood Urea Nitrogen 36 mg/dL (8-23); Calcium 8.6 mg/dL (8.5-10.5); Carbon Dioxide 26 mmol/L (22-29); Chloride 102 mmol/L (98-107); Glomerular Filtration Rate 38.4 mL/min (90-130); Glucose 147 mg/dL (65-115); Osmolality Calculated 299 mOsm/kg (285-295); Potassium 4.8 mmol/L (3.5-5.1); Sodium 139 mmol/L (136-145)
== END 2022-12-15 13:50 | disposition home or self-care (01) ==
PROVIDERS: PCP Family Medicine; Visit Provider Internal Medicine
DX: E11.42 Type 2 diabetes mellitus with diabetic polyneuropathy (principal); E78.2 Mixed hyperlipidemia; E03.9 Hypothyroidism, unspecified; D72.829 Elevated white blood cell count, unspecified
CPT/HCPCS: 36415; 80048

== ENCOUNTER → 2022-12-27 15:14 | Outpatient (BNVA) | payer MEDICAID, SELFPAY ==
[2022-08-30 13:42] VITALS: BP 130/67; BMI 35.4
== END ==
PROVIDERS: PCP Family Medicine; Visit Provider Podiatrist Foot & Ankle Surgery
DX: E11.621 Type 2 diabetes mellitus with foot ulcer (principal); Z79.4 Long term (current) use of insulin; L97.512 Non-pressure chronic ulcer of other part of right foot with fat layer exposed; Z51.89 Encounter for other specified aftercare; E11.42 Type 2 diabetes mellitus with diabetic polyneuropathy; M20.41 Other hammer toe(s) (acquired), right foot; M14.672 Charcot's joint, left ankle and foot
CPT/HCPCS: 99214

== ENCOUNTER → 2023-01-24 14:47 | Outpatient (BNVA) | payer MEDICAID, SELFPAY ==
[2022-08-30 13:42] VITALS: BP 130/67; BMI 35.4
== END ==
PROVIDERS: PCP Family Medicine; Visit Provider Podiatrist Foot & Ankle Surgery
DX: E11.42 Type 2 diabetes mellitus with diabetic polyneuropathy (principal); M20.41 Other hammer toe(s) (acquired), right foot; M14.672 Charcot's joint, left ankle and foot; L97.512 Non-pressure chronic ulcer of other part of right foot with fat layer exposed; E11.621 Type 2 diabetes mellitus with foot ulcer; Z79.4 Long term (current) use of insulin
CPT/HCPCS: 99214

== ENCOUNTER 2023-01-25 14:44 | Oncology outpatient (recurring) (ONCR) | payer MEDICAID, SELFPAY ==
[2022-08-30 13:42] VITALS: BP 130/67; BMI 35.4
--- OUTSIDE RECORDS SUMMARY | 2023-01-25 14:49 | XMS_ITS | Continuity of Care Document ---
Author Name Unknown Organization [facility] Address [address] [place] [address] Care Team Providers Care Counseling Services Director Name Role Phone Misc, Physician Primary Care Physician Unavailab le Encounter [facility] Date(s): 09/11/22 - 09/11/22 [facility] [address] [place] [phone] Encounter Diagnosis Diabetic foot infection(Discharge Diagnosis) - 09/11/22 Cellulitis(Discharge Diagnosis) - 09/11/22 Local infection of the skin and subcutaneous tissue, unspecified(Discharge Diagnosis) - 09/11/22 Discharge Disposition: Home Attending Physician: Humza Dempsey Admitting Physician: Humza Dempsey Allergies, Adverse Reactions, Alerts Substance Reaction Severity Status clindamycin Unknown Active Cipro Unknown Active Assessment and Plan Extracted from: Title:Wound infection - uncomplicated Author:Michael Goldstein DO Date:09/11/22 Impression and Plan Diagnosis Wound infection - uncomplicated (PNED [id number], Reason For Visit, Emergency medicine, Medical) Diabetic foot infection ([id number] E11.628, Discharge, Medical) Cellulitis (HGI52-MA L03.90, Discharge, Medical) Plan Condition: Improved, Stable. Disposition: Discharged: Time 09/11/2022 19:03:00, to home. Patient was given the following educational materials: Cellulitis, Adult, Exhg-my-Qgze, Diabetes Mellitus and Foot Care. Follow up with: Primary Care Physician, In: as needed. Counseled: Patient, Regarding diagnosis, Regarding diagnostic results, Regarding treatment plan, Regarding prescription, Patient indicated understanding of instructions. Functional Status 09/11/22 ED Note - Physician Patient: GUERA LEDESMA MARIA D Age: 62 years Sex: FEMALE : 1960 Associated Diagnoses: Wound infection - uncomplicated; Diabetic foot infection; Cellulitis Author: Michael Arias DO Basic Information Time seen: Date & time 09/11/2022 18:22:00. History source: Patient. Arrival mode: Private vehicle. History limitation: None. Additional information: Chief Complaint from Nursing Triage Note : Chief Complaint 09/11/2022 17:43 CDT Chief Complaint 62 year old female patient presents to the ER with complaints of right foot pain and redness to foot radiating up to knee. the initial area on foot was noted on the 7th of this month and has worsened . History of Present Illness The patient presents with wound infection and Right foot. The onset was gradual. The course/duration of symptoms is constant and worsening. Type of wound: Diabetic pressure wound. Location: Right First metatarsal palmar aspect of the foot. 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 Symptoms: pain, redness and drainage. The degree at present is moderate. Risk factors consist of diabetes mellitus. Prior episodes: occasional. Therapy today: none. Associated symptoms: none. 62-year-old female presents to the ER with wound at the bottom of her foot below the first metatarsal on the right side that she been taking care of and watching with the farm boss help but now is showing some swelling and redness with warmth and streaking up the inside of the lower extremity up to the knee.. Review of Systems Additional review of systems information: All other systems reviewed and otherwise negative. Health Status Allergies: Allergic Reactions (Selected) Unknown Cipro- No reactions were documented. Clindamycin- No reactions were documented.. Medications: (Selected) Prescriptions Prescribed doxycycline hyclate 100 mg oral capsule: 100 mg = 1 cap(s), PO, BID, for 10 day(s), 20 cap(s), 0 Refill(s) Documented Medications Documented Aspirin 81 Chewtab: 81 mg, PO, Daily, 0 Refill(s) Centrum Silver oral tablet: 1 tab(s), PO, Daily, 0 Refill(s) Entresto 49 mg-51 mg oral tablet: 1 tab(s), PO, BID, 60 tab(s), 0 Refill(s) Lasix 20 mg oral tablet: 20 mg = 1 tab(s), PO, BID, 0 Refill(s) Levemir 100 units/mL Insulin: 24 unit(s), SubQ, BID, 0 Refill(s) NovoLOG 100 units/mL injectable solution: sliding scale, 0 Refill(s) PROzac 20 mg oral capsule: PO, Daily, 0 Refill(s) amLODIPine 5 mg oral tablet: PO, Daily, 0 Refill(s) carvedilol 12.5 mg oral tablet: 12.5 mg = 1 tab(s), PO, BID, 0 Refill(s) gabapentin 100 mg oral capsule: 100 mg = 1 cap(s), PO, TID, 0 Refill(s) levothyroxine: 88 mcg, PO, Daily, 0 Refill(s) methotrexate 2.5 mg oral tablet: 2.5 mg = 1 tab(s), PO, qWeek, 4 tab(s), 0 Refill(s) predniSONE: 10 mg, PO, Once a day (at bedtime), 0 Refill(s) rosuvastatin: See Instructions, 40 mg, 0 Refill(s) spironolactone 25 mg oral tablet: 25 mg = 1 tab(s), PO, Daily, 0 Refill(s). Past Medical/ Family/ Social History Medical history: Reviewed as documented in chart. Surgical history: Negative. Family history: Not significant. Social history: Social & Psychosocial Habits No Data Available . Problem list: Active Problems (7) Charcot foot due to diabetes mellitus CHF (congestive heart failure) Diabetes Diabetic retinopathy of both eyes Ischemic cardiomyopathy Macular degeneration Polymyalgia rheumatica . Physical Examination Vital Signs Vital Signs 09/11/2022 19:22 CDT Temperature Oral 36.8 DegC Temperature Oral (DegF) 98.24 DegF Peripheral Pulse Rate 67 bpm Respiratory Rate 18 br/min Systolic Blood Pressure 143 mmHg HI Diastolic Blood Pressure 67 mmHg SpO2 98 % Oxygen Therapy Room air SpO2 Location Other: 09/11/2022 17:43 CDT Temperature Oral 36.7 DegC Temperature Oral (DegF) 98.06 DegF Peripheral Pulse Rate 71 bpm Respiratory Rate 18 br/min Systolic Blood Pressure 157 mmHg HI Diastolic Blood Pressure 76 mmHg SpO2 97 % Oxygen Therapy Room air . General: Alert, no acute distress, anxious. Skin: Warm, dry, pink, Large callus under the first metatarsal of the right foot with an open area in the middle but no purulent drainage seen, with red streaking that is tender to palpation along the medial aspect of the foot and lower extremity up to the knee. Lymphatics: No lymphadenopathy. Psychiatric: Cooperative. Medical Decision Making Differential Diagnosis:: Cellulitis, non-healing surgical wound. Notes: Patient was given 1 g of Rocephin IM and started on doxycycline 100 mg twice daily. We then redressed the wound and sent her home. Impression and Plan Diagnosis Wound infection - uncomplicated (PNED [id number], Reason For Visit, Emergency medicine, Medical) Diabetic foot infection ([id number]-QQ E11.628, Discharge, Medical) Cellulitis (AFW26-HD L03.90, Discharge, Medical) Plan Condition: Improved, Stable. Disposition: Discharged: Time 09/11/2022 19:03:00, to home. Patient was given the following educational materials: Cellulitis, Adult, Eigq-[id number], Diabetes Mellitus and Foot Care. Follow up with: Primary Care Physician, In: as needed. Counseled: Patient, Regarding diagnosis, Regarding diagnostic results, Regarding treatment plan, Regarding prescription, Patient indicated understanding of instructions. 09/11/22 Family Member Travel History No recent t ravel Recent Travel History No recent travel Other exposure to Infectious Disease Non e Medications amLODIPine 5 mg oral tablet PO, Daily, 0 Refill(s) Start Date: 09/11/22 Status: Ordered Aspirin 81 Chewtab ( 81 mg ), PO, Daily, 0 Refill(s) Start Date: 09/11/22 Status: Ordered carvedilol 12.5 mg oral tablet 1 tab(s) ( 12.5 mg ), PO, BID, 0 Refill(s) Start Date: 09/11/22 Status: Ordered Centrum Silver oral tablet 1 tab(s), PO, Daily, 0 Refill(s) Start Date: 09/11/22 Status: Ordered doxycycline hyclate 100 mg oral capsule 1 cap(s) ( 100 mg ), PO, BID, x 10 day(s), # 20 cap(s), 0 Refill(s), 09/21/22, Pharmacy: [id number], 1 cap(s) PO BID,x10 day(s) Start Date: 09/11/22 Stop Date: 09/21/22 Status: Ordered Entresto 49 mg-51 mg oral tablet 1 tab(s), PO, BID, # 60 tab(s), 0 Refill(s) Start Date: 09/11/22 Status: Ordered gabapentin 100 mg oral capsule 1 cap(s) ( 100 mg ), PO, TID, 0 Refill(s) Start Date: 09/11/22 Status: Ordered Lasix 20 mg oral tablet 1 tab(s) ( 20 mg ), PO, BID, 0 Refill(s) Start Date: 09/11/22 Status: Ordered Levemir 100 units/mL Insulin ( 24 unit(s) ), SubQ, BID, 0 Refill(s) Start Date: 09/11/22 Status: Ordered levothyroxine ( 88 mcg ), PO, Daily, 0 Refill(s) Start Date: 09/11/22 Status: Ordered methotrexate 2.5 mg oral tablet 1 tab(s) ( 2.5 mg ), PO, qWeek, # 4 tab(s), 0 Refill(s) Start Date: 09/11/22 Status: Ordered NovoLOG 100 units/mL injectable solution Instructions: sliding scale, 0 Refill(s) Start Date: 09/11/22 Status: Ordered predniSONE ( 10 mg ), PO, Once a day (at bedtime), 0 Refill(s) Start Date: 09/11/22 Status: Ordered PROzac 20 mg oral capsule PO, Daily, 0 Refill(s) Start Date: 09/11/22 Status: Ordered rosuvastatin See Instructions, Instructions: 40 mg, 0 Refill(s) Start Date: 09/11/22 Status: Ordered spironolactone 25 mg oral tablet 1 tab(s) ( 25 mg ), PO, Daily, 0 Refill(s) Start Date: 09/11/22 Status: Ordered Mental Status 09/11/22 Level of Consciousness Alert Problem List Condition Confirmation Course Effective Dates Status H ealth Status Informant Charcot foot due to diabetes mellitus Confirmed Active CHF (congestive heart failure) Confirmed Active Macular degeneration Confirmed Active Diabetes Confirmed Active Ischemic cardiomyopathy Confirmed Active Polymyalgia rheumatica Confirmed Active Diabetic retinopathy of both eyes Confirmed Active Procedures Procedure Date Related Diagnosis Body Site Status Cardiac revascularization wi th bypass anastomosis Completed CTR - carpal tunnel release Completed Knee replacement Complete d Vital Signs Most recent to oldest [Reference Range]: 1 2 Height/Length Dosing 182.880 cm (09/11/22 6:56 PM) Height/Length Estimated 182.880 cm (09/11/22 5:43 PM) Weight Dosing 117.930 kg (09/11/22 6:56 PM) Weight Estimated 117.930 kg (09/11/22 5:43 PM) Temperature Oral [35.8-37.3 DegC] 36.8 D egC (09/11/22 7:22 PM) 36.7 DegC (09/11/22 5:43 PM) Temperature Oral (DegF) [96.4-99.1 DegF] 98.24 DegF (09/11/22 7:22 PM) 98.06 DegF (09/11/22 5:43 PM) Peripheral Pulse Rate [60-100 bpm] 67 bp m (09/11/22 7:22 PM) 71 bpm (09/11/22 5:43 PM) Respiratory Rate [14-20 br/min] 18 br/mi n (09/11/22 7:22 PM) 18 br/min (09/11/22 5:43 PM) Blood Pressure [90-140/60-90 mmHg] 143/6 7mmHg *HI* (09/11/22 7:22 PM) 157/76mmHg *HI* (09/11/22 5:43 PM) SpO2 [92-100 %] 98 % (09/11/22:22 PM) 97 % (09/11/22 5:43 PM) Oxygen Therapy Room air (09/11/22:22 PM) Room air (09/11/22 5:43 PM) SpO2 Location Other: (09/11/22 7:22 PM) Hospital Discharge Instructions Patient Education 09/11/2022 18:39:05 Diabetes Mellitus and Foot Care Diabetes Mellitus and Foot Care Foot care is an important part of your health, especially when you have diabetes. Diabetes may cause you to have problems because of poor blood flow (circulation) to your feet and legs, which can cause your skin to: ??? Become thinner and skein yard drier. ??? Break more easily. ??? Heal more slowly. ??? Peel and crack. You may also have nerve damage (neuropathy) in your legs and feet, causing decreased feeling in them. This means that you may not notice minor injuries to your feet that could lead to more serious problems. Noticing and addressing any potential problems early is the best way to prevent future foot problems. How to care for your feet Foot hygiene ??? Wash your feet daily with warm water and mild soap. Do not use hot water. Then, pat your feet and the areas between your toes until they are completely dry. Do not soak your feet as this can dry your skin. ??? Trim your toenails straight across. Do not dig under them or around the cuticle. File the edgesof your nails with an emery board or nail file. ??? Apply a moisturizing lotion or petroleum jelly to the skin on your feet and to dry, brittle toenails. Use lotion that does not contain alcohol and is unscented. Do not apply lotion between your toes. Shoes and socks ??? Wear clean socks or stockings every day. Make sure they are not too tight. Do not wear knee-high stockings since they may decrease blood flow to your legs. ??? Wear shoes that fit properly and have enough cushioning. Always look in your shoes before you put them on to be sure there are no objects inside. ??? To break in new shoes, wear them for just a few hours a day. This prevents injuries on your feet. Wounds, scrapes, corns, and calluses ??? Check your feet daily for blisters, cuts, bruises, sores, and redness. If you cannot see the bottom of your feet, use a mirror or ask someone for help. ??? Do not cut corns or calluses or try to remove them with medicine. ??? If you find a minor scrape, cut, or break in the skin on your feet, keep it and the skin aroundit clean and dry. You may clean these areas with mild soap and water. Do not clean the area with peroxide, alcohol, or iodine. ??? If you have a wound, scrape, corn, or callus on your foot, look at it several times a day to make sure it is healing and not infected. Check for: ??? Redness, swelling, or pain. ??? Fluid or blood. ??? Warmth. ??? Pus or a bad smell. General tips ??? Do not cross your legs. This may decrease blood flow to your feet. ??? Do not use heating pads or hot water bottles on your feet. They may burn your skin. If you havelost feeling in your feet or legs, you may not know this is happening until it is too late. ??? Protect your feet from hot and cold by wearing shoes, such as at the beach or on hot pavement. ??? Schedule a complete foot exam at least once a year (annually) or more often if you have foot problems. Report any cuts, sores, or bruises to your health care provider immediately. Where to find more information ??? [place] [employer]: www.diabetes.org ? ? Association of Diabetes [employer] Education Specialists: www.diabeteseducator.org Contact a health care provider if: ??? You have a medical condition that increases your risk of infection and you have any cuts, sores, or bruises on your feet. ??? You have an injury that is not healing. ??? You have redness on your legs or feet. ??? You feel burning or tingling in your legs or feet. ??? You have pain or cramps in your legs and feet. ??? Your legs or feet are numb. ??? Your feet always feel cold. ??? You have pain around any toenails. Get help right away if: ??? You have a wound, scrape, corn, or callus on your foot and: ??? You have pain, swelling, or redness that gets worse. ??? You have fluid or blood coming from the wound, scrape, corn, or callus. ??? Your wound, scrape, corn, or callus feels warm to the touch. ??? You have pus or a bad smell coming from the wound, scrape, corn, or callus. ??? You have a fever. ??? You have a red line going up your leg. Summary ??? Check your feet every day for blisters, cuts, bruises, sores, and redness. ??? Apply a moisturizing lotion or petroleum jelly to the skin on your feet and to dry, brittle toenails. ??? Wear shoes that fit properly and have enough cushioning. ??? If you have foot problems, report any cuts, sores, or bruises to your health care provider immediately. ??? Schedule a complete foot exam at least once a year (annually) or more often if you have foot problems. This information is not intended to replace advice given to you by your health care provider. Make sure you discuss any questions you have with your health care provider. Document Revised: 01/06/2021 Document Reviewed: 01/06/2021 [employer] Patient Education ?? 2021 [employer] 09/11/2022 18:39:05 Cellulitis, Adult, Jhyw-sg-Sipd Cellulitis, Adult Cellulitis is a skin infection. The infected area is often warm, red, swollen, and sore. It occurs most often in the arms and lower legs. It is very important to get treated for this condition. What are the causes? This condition is caused by bacteria. The bacteria enter through a break in the skin, such as a cut, burn, insect bite, open sore, or crack. What increases the risk? This condition is more likely to occur in people who: ??? Have a weak body defense system (immune system). ??? Have open cuts, lyn, bites, or scrapes on the skin. ??? Are older than 60 years of age. ??? Have a blood sugar problem (diabetes). ??? Have a long-lasting (chronic) liver disease (cirrhosis) or kidney disease. ??? Are very overweight (obese). ??? Have a skin problem, such as: ??? Itchy rash (eczema). ??? Slow movement of blood in the veins (venous stasis). ??? Fluid buildup below the skin (edema). ??? Have been treated with high-energy rays (radiation). ??? Use IV drugs. What are the signs or symptoms? Symptoms of this condition include: ??? Skin that is: ??? Red. ??? Streaking. ??? Spotting. ??? Swollen. ??? Sore or painful when you touch it. ??? Warm. ??? A fever. ??? Chills. ??? Blisters. How is this diagnosed? This condition is diagnosed based on: ??? Medical history. ??? Physical exam. ??? Blood tests. ??? Imaging tests. How is this treated? Treatment for this condition may include: ??? Medicines to treat infections or allergies. ??? Home care, such as: ??? Rest. ??? Placing cold or warm cloths (compresses) on the skin. ??? Hospital care, if the condition is very bad. Follow these instructions at home: Medicines ??? Take vxwv-tji-phhdqsm and prescription medicines only as told by your doctor. ??? If you were prescribed an antibiotic medicine, take it as told by your doctor. Do not stop taking it even if you start to feel better. General instructions ??? Drink enough fluid to keep your pee (urine) pale yellow. ??? Do not touch or rub the infected area. ??? Raise (elevate) the infected area above the level of your heart while you are sitting or lying down. ??? Place cold or warm cloths on the area as told by your doctor. ??? Keep all follow-up visits as told by your doctor. This is important. Contact a doctor if: ??? You have a fever. ??? You do not start to get better after 1???2 days of treatment. ??? Your bone or joint under the infected area starts to hurt after the skin has healed. ??? Your infection comes back. This can happen in the same area or another area. ??? You have a swollen bump in the area. ??? You have new symptoms. ??? You feel ill and have muscle aches and pains. Get help right away if: ??? Your symptoms get worse. ??? You feel very sleepy. ??? You throw up (vomit) or have watery poop (diarrhea) for a long time. ??? You see red streaks coming from the area. ??? Your red area gets larger. ??? Your red area turns dark in color. These symptoms may represent a serious problem that is an emergency. Do not wait to see if the symptoms will go away. Get medical help right away. Call your local emergency services (911 in the [place] Do not drive yourself to the hospital. Summary ??? Cellulitis is a skin infection. The area is often warm, red, swollen, and sore. ??? This condition is treated with medicines, rest, and cold and warm cloths. ??? Take all medicines only as told by your doctor. ??? Tell your doctor if symptoms do not start to get better after 1???2 days of treatment. This information is not intended to replace advice given to you by your health care provider. Make sure you discuss any questions you have with your health care provider. Document Revised: 11/07/2018 Document Reviewed: 11/07/2018 [employer] Patient Education ?? 2021 [employer] Physician Emergency department Note * Michael Arias DO: MODIFY, MODIFY, SIGN, VERIFY, PERFORM Event Display: ED Note - Physician Authored Date: [id number] Patient: GUERA LEDESMA Age: 62 years Sex: FEMALE : 1960 Associated Diagnoses: Wound infection - uncomplicated; Diabetic foot infection; Cellulitis Author: Michael Arias DO Basic Information Time seen: Date & time 09/11/2022 18:22:00. History source: Patient. Arrival mode: Private vehicle. History limitation: None. Additional information: Chief Complaint from Nursing Triage Note : Chief Complaint 09/11/2022 17:43 CDT Chief Complaint 62 year old female patient presents to the ER with complaints of right foot pain and redness to foot radiating up to knee. the initial area on foot was noted on the 7th of this month and has worsened . History of Present Illness The patient presents with wound infection and Right foot. The onset was gradual. The course/duration of symptoms is constant and worsening. Type of wound: Diabetic pressure wound. Location: Right First metatarsal palmar aspect of the foot. 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 Symptoms: pain,redness and drainage. The degree at present is moderate. Risk factors consist of diabetes mellitus.Prior episodes: occasional. Therapy today: none. Associated symptoms: none. 62-year-old female presents to the ER with wound at the bottom of her foot below the first metatarsal on the right side that she been taking care of and watching with the farm boss help but now is showing some swelling andredness with warmth and streaking up the inside of the lower extremity up to the knee.. Review of Systems Additional review of systems information: All other systems reviewed and otherwise negative. Health Status Allergies: Allergic Reactions (Selected) Unknown Cipro- No reactions were documented. Clindamycin- No reactions were documented.. Medications: (Selected) Prescriptions Prescribed doxycycline hyclate 100 mg oral capsule: 100 mg = 1 cap(s), PO, BID, for 10 day(s), 20 cap(s), 0 Refill(s) Documented Medications Documented Aspirin 81 Chewtab: 81 mg, PO, Daily, 0 Refill(s) Centrum Silver oral tablet: 1 tab(s), PO, Daily, 0 Refill(s) Entresto 49 mg-51 mg oral tablet: 1 tab(s), PO, BID, 60 tab(s), 0 Refill(s) Lasix 20 mg oral tablet: 20 mg = 1 tab(s), PO, BID, 0 Refill(s) Levemir 100 units/mL Insulin: 24 unit(s), SubQ, BID, 0 Refill(s) NovoLOG 100 units/mL injectable solution: sliding scale, 0 Refill(s) PROzac 20 mg oral capsule: PO, Daily, 0 Refill(s) amLODIPine 5 mg oral tablet: PO, Daily, 0 Refill(s) carvedilol 12.5 mg oral tablet: 12.5 mg = 1 tab(s), PO, BID, 0 Refill(s) gabapentin 100 mg oral capsule: 100 mg = 1 cap(s), PO, TID, 0 Refill(s) levothyroxine: 88 mcg, PO, Daily, 0 Refill(s) methotrexate 2.5 mg oral tablet: 2.5 mg = 1 tab(s), PO, qWeek, 4 tab(s), 0 Refill(s) predniSONE: 10 mg, PO, Once a day (at bedtime), 0 Refill(s) rosuvastatin: See Instructions, 40 mg, 0 Refill(s) spironolactone 25 mg oral tablet: 25 mg = 1 tab(s), PO, Daily, 0 Refill(s). Past Medical/ Family/ Social History Medical history: Reviewed as documented in chart. Surgical history: Negative. Family history: Not significant. Social history: Social & Psychosocial Habits No Data Available . Problem list: Active Problems (7) Charcot foot due to diabetes mellitus CHF (congestive heart failure) Diabetes Diabetic retinopathy of both eyes Ischemic cardiomyopathy Macular degeneration Polymyalgia rheumatica . Physical Examination Vital Signs Vital Signs 09/11/2022 19:22 CDT Temperature Oral 36.8 DegC Temperature Oral (DegF) 98.24 DegF Peripheral Pulse Rate 67 bpm Respiratory Rate 18 br/min Systolic Blood Pressure 143 mmHg HI Diastolic Blood Pressure 67 mmHg SpO2 98 % Oxygen Therapy Room air SpO2 Location Other: 09/11/2022 17:43 CDT Temperature Oral 36.7 DegC Temperature Oral (DegF) 98.06 DegF Peripheral Pulse Rate 71 bpm Respiratory Rate 18 br/min Systolic Blood Pressure 157 mmHg HI Diastolic Blood Pressure 76 mmHg SpO2 97 % Oxygen Therapy Room air . General: Alert, no acute distress, anxious. Skin: Warm, dry, pink, Large callus under the first metatarsal of the right foot with an open area in the middle but no purulent drainage seen, with red streaking that is tender to palpation along the medial aspect of the foot and lower extremity up to the knee. Lymphatics: No lymphadenopathy. Psychiatric: Cooperative. Medical Decision Making Differential Diagnosis:: Cellulitis, non-healing surgical wound. Notes: Patient was given 1 g of Rocephin IM and started on doxycycline 100 mg twice daily. We then redressed the wound and sent her home. Impression and Plan Diagnosis Wound infection - uncomplicated (PNED [id number], Reason For Visit, Emergency medicine, Medical) Diabetic foot infection (JVP30-JU E11.628, Discharge, Medical) Cellulitis (QPN86-GD L03.90, Discharge, Medical) Plan Condition: Improved, Stable. Disposition: Discharged: Time 09/11/2022 19:03:00, to home. Patient was given the following educational materials: Cellulitis, Adult, [id number], Diabetes Mellitus and Foot Care. Follow up with: Primary Care Physician, In: as needed. Counseled: Patient, Regarding diagnosis, Regarding diagnostic results, Regarding treatment plan, Regarding prescription, Patient indicated understanding of instructions. [Electronically Signed on: 09/12/2022 00:45 CDT] Kronenwetter, Michael DO [Verified on: 09/12/2022 00:45 CDT] Michael Arias DO Patient Care team information Care Team Personnel Name: Misc, Physician Position: [facility] No Access Member Role: Primary Care Physician Address: Address: [place] [address] [place] Name: Shannon Nieves Position: [facility] RN LP Member Role: Registered Nurse Name: Cynthia Juares Position: [facility] RN LP Member Role: Licensed Practical/Vocational Nurse Name: Michael Arias DO Position: [facility] Physician OB LP Member Role: Physician Address: Address: [address] [facility] [place] [address] Care Team Related Persons Name: EMMA LEDESMA Name: BLAINE WEBB
[2023-01-30 08:12] LABS: Leukemia Profile (BBPL) See Report; Lymphoma Profile (BBPL) See Report
[2023-01-30 11:29] LABS: P190 BCR ALB1 NOT DETECTED; P190 BCR ALB1 Yes Test Yes; P210 BCR ALB1 NOT DETECTED; P210 BCR ALB1 Yes Test Yes; Prior Results NG; Source Blood
== END 2023-01-29 23:59 | disposition home or self-care (01) ==
PROVIDERS: PCP Family Medicine; Visit Provider Internal Medicine Medical Oncology
DX: D72.829 Elevated white blood cell count, unspecified (principal)
CPT/HCPCS: 36415; 81206; 81207; 88184; 88185; 99203

== ENCOUNTER 2023-02-01 12:47 | Oncology outpatient (recurring) (ONCR) | payer MEDICAID, SELFPAY ==
[2022-08-30 13:42] VITALS: BP 130/67; BMI 35.4
[2023-02-01 13:32] LABS: Basophils % 0.4 %; Eosinophils # 0.1 10^3/uL (0.0-0.8); Eosinophils % 0.6 %; Hematocrit 38.2 % (37.0-47.0); Hemoglobin 12.1 g/dL (11.5-15.3); Lymphocytes # 1.1 10^3/uL (0.8-4.8); Lymphocytes % 10.1 %; Mean Corpuscular HGB Conc 31.7 g/dL (30.0-36.0); Mean Corpuscular Hemoglobin 31.5 pg (28.0-34.0); Mean Corpuscular Volume 99.5 fl (81-99); Mean Platelet Volume 10.8 fL (7.4-10.4); Monocytes # 0.8 10^3/uL (0.2-0.9); Monocytes % 6.9 %; Neutrophils # 8.82 10^3/uL (1.8-7.7); Neutrophils % 81.4 %; Nucleated Red Blood Cells % 0 %; Platelet Count 223 10^3/cmm (130-400); Red Blood Count 3.84 10^6/uL (4.1-5.3); Red Cell Distribution Width 16.2 % (12.1-15.1); White Blood Count 10.8 10^3/uL (4.0-10.0)
[2023-02-01 17:01] VITALS: BP 117/72; PULSE 70; RESP 17; TEMP 35.9; O2SAT 95
== END 2023-03-01 23:59 | disposition home or self-care (01) ==
LOC: ONCMED 12:48
PROVIDERS: PCP Family Medicine; Visit Provider Internal Medicine Medical Oncology
DX: D72.829 Elevated white blood cell count, unspecified (principal)
CPT/HCPCS: 36415; 85025; 99214

== ENCOUNTER → 2023-02-07 15:12 | Outpatient (BNVA) | payer MEDICAID, SELFPAY ==
[2022-08-30 13:42] VITALS: BP 130/67; BMI 35.4
== END ==
PROVIDERS: PCP Family Medicine; Visit Provider Podiatrist Foot & Ankle Surgery
DX: E11.42 Type 2 diabetes mellitus with diabetic polyneuropathy (principal); M20.41 Other hammer toe(s) (acquired), right foot; M14.672 Charcot's joint, left ankle and foot; L97.512 Non-pressure chronic ulcer of other part of right foot with fat layer exposed; E11.621 Type 2 diabetes mellitus with foot ulcer; Z79.84 Long term (current) use of oral hypoglycemic drugs
CPT/HCPCS: 11042

== ENCOUNTER → 2023-02-21 15:15 | Outpatient (BNVA) | payer MEDICAID, SELFPAY ==
[2022-08-30 13:42] VITALS: BP 130/67; BMI 35.4
== END ==
PROVIDERS: PCP Family Medicine; Visit Provider Podiatrist Foot & Ankle Surgery
DX: E11.42 Type 2 diabetes mellitus with diabetic polyneuropathy (principal); M20.41 Other hammer toe(s) (acquired), right foot; M14.672 Charcot's joint, left ankle and foot; L97.512 Non-pressure chronic ulcer of other part of right foot with fat layer exposed; E11.621 Type 2 diabetes mellitus with foot ulcer; Z79.4 Long term (current) use of insulin
CPT/HCPCS: 99213

== ENCOUNTER → 2023-03-08 08:16 | Outpatient (BNVA) | payer MEDICAID, SELFPAY ==
[2022-08-30 13:42] VITALS: BP 130/67; BMI 35.4
== END ==
PROVIDERS: PCP Family Medicine; Visit Provider Internal Medicine
DX: E11.42 Type 2 diabetes mellitus with diabetic polyneuropathy (principal); E78.2 Mixed hyperlipidemia; E03.9 Hypothyroidism, unspecified; D72.829 Elevated white blood cell count, unspecified; I50.9 Heart failure, unspecified; Z79.84 Long term (current) use of oral hypoglycemic drugs; Z79.890 Hormone replacement therapy; Z79.4 Long term (current) use of insulin; M35.3 Polymyalgia rheumatica; H35.30 Unspecified macular degeneration
CPT/HCPCS: 99214

== ENCOUNTER → 2023-03-09 12:56 | Outpatient (BNVA) | payer MEDICAID, SELFPAY ==
[2022-08-30 13:42] VITALS: BP 130/67; BMI 35.4
== END ==
PROVIDERS: PCP Family Medicine; Visit Provider Podiatrist Foot & Ankle Surgery
DX: E11.621 Type 2 diabetes mellitus with foot ulcer (principal); L97.512 Non-pressure chronic ulcer of other part of right foot with fat layer exposed; E11.42 Type 2 diabetes mellitus with diabetic polyneuropathy; M20.41 Other hammer toe(s) (acquired), right foot; M14.672 Charcot's joint, left ankle and foot; Z79.84 Long term (current) use of oral hypoglycemic drugs
CPT/HCPCS: 99213

== ENCOUNTER → 2023-03-15 15:41 | Outpatient (BNVA) | payer OTHER, SELFPAY ==
[2022-08-30 13:42] VITALS: BP 130/67; BMI 35.4
== END ==
PROVIDERS: PCP Family Medicine; Visit Provider Psychiatry & Neurology Psychiatry
DX: F41.1 Generalized anxiety disorder (principal)
CPT/HCPCS: 80061; 83036

== ENCOUNTER → 2023-03-22 08:46 | Outpatient (BNVA) | payer MEDICAID, SELFPAY ==
[2023-03-20 16:35] VITALS: BP 127/70; BMI 33.7
== END ==
PROVIDERS: PCP Family Medicine; Visit Provider Nurse Practitioner Family
DX: E11.52 Type 2 diabetes mellitus with diabetic peripheral angiopathy with gangrene (principal); L89.892 Pressure ulcer of other site, stage 2
CPT/HCPCS: 11042; 99213; A6210; A6250

== ENCOUNTER → 2023-03-29 09:04 | Outpatient (BNVA) | payer MEDICAID, SELFPAY ==
[2023-03-20 16:35] VITALS: BP 127/70; BMI 33.7
== END ==
PROVIDERS: PCP Family Medicine; Visit Provider Nurse Practitioner Family
DX: E11.52 Type 2 diabetes mellitus with diabetic peripheral angiopathy with gangrene (principal); L89.892 Pressure ulcer of other site, stage 2
CPT/HCPCS: 97597; A6210; A6250

== ENCOUNTER → 2023-04-05 08:49 | Outpatient (BNVA) | payer MEDICAID, SELFPAY ==
[2023-03-20 16:35] VITALS: BP 127/70; BMI 33.7
== END ==
PROVIDERS: PCP Family Medicine; Visit Provider Nurse Practitioner Family
DX: E11.52 Type 2 diabetes mellitus with diabetic peripheral angiopathy with gangrene (principal); L89.892 Pressure ulcer of other site, stage 2; S91.114A Laceration without foreign body of right lesser toe(s) without damage to nail, initial encounter; X58.XXXA Exposure to other specified factors, initial encounter
CPT/HCPCS: 97597; A6210

== ENCOUNTER → 2023-04-12 09:07 | Outpatient (BNVA) | payer MEDICAID, SELFPAY ==
[2023-03-20 16:35] VITALS: BP 127/70; BMI 33.7
== END ==
PROVIDERS: PCP Family Medicine; Visit Provider Nurse Practitioner Family
DX: E11.52 Type 2 diabetes mellitus with diabetic peripheral angiopathy with gangrene (principal); L89.892 Pressure ulcer of other site, stage 2
CPT/HCPCS: 11042

== ENCOUNTER → 2023-05-10 10:36 | Outpatient (BNVA) | payer MEDICAID, SELFPAY ==
[2023-03-20 16:35] VITALS: BP 127/70; BMI 33.7
== END ==
PROVIDERS: PCP Family Medicine; Visit Provider Nurse Practitioner Family
DX: E11.52 Type 2 diabetes mellitus with diabetic peripheral angiopathy with gangrene (principal); E11.621 Type 2 diabetes mellitus with foot ulcer; L97.412 Non-pressure chronic ulcer of right heel and midfoot with fat layer exposed; L97.512 Non-pressure chronic ulcer of other part of right foot with fat layer exposed
CPT/HCPCS: 11042; A6210

== ENCOUNTER → 2023-05-17 13:45 | Outpatient (BNVA) | payer MEDICAID, SELFPAY ==
[2023-03-20 16:35] VITALS: BP 127/70; BMI 33.7
== END ==
PROVIDERS: PCP Family Medicine; Visit Provider Nurse Practitioner Family
DX: E11.52 Type 2 diabetes mellitus with diabetic peripheral angiopathy with gangrene (principal); E11.621 Type 2 diabetes mellitus with foot ulcer; L97.412 Non-pressure chronic ulcer of right heel and midfoot with fat layer exposed; L97.512 Non-pressure chronic ulcer of other part of right foot with fat layer exposed
CPT/HCPCS: 11042; A6210

== ENCOUNTER → 2023-05-31 12:55 | Outpatient (BNVA) | payer MEDICAID, SELFPAY ==
[2023-03-20 16:35] VITALS: BP 127/70; BMI 33.7
== END ==
PROVIDERS: PCP Family Medicine; Visit Provider Nurse Practitioner Family
DX: E11.52 Type 2 diabetes mellitus with diabetic peripheral angiopathy with gangrene (principal); E11.621 Type 2 diabetes mellitus with foot ulcer; L97.412 Non-pressure chronic ulcer of right heel and midfoot with fat layer exposed; Z09 Encounter for follow-up examination after completed treatment for conditions other than malignant neoplasm
CPT/HCPCS: 11042

== ENCOUNTER → 2023-06-07 10:31 | Outpatient (BNVA) | payer MEDICAID, SELFPAY ==
[2023-03-20 16:35] VITALS: BP 127/70; BMI 33.7
== END ==
PROVIDERS: PCP Family Medicine; Visit Provider Nurse Practitioner Family
DX: E11.52 Type 2 diabetes mellitus with diabetic peripheral angiopathy with gangrene (principal); E11.621 Type 2 diabetes mellitus with foot ulcer; L97.411 Non-pressure chronic ulcer of right heel and midfoot limited to breakdown of skin
CPT/HCPCS: 97597; A6210

== ENCOUNTER → 2023-06-21 09:54 | Outpatient (BNVA) | payer MEDICAID, SELFPAY ==
[2023-03-20 16:35] VITALS: BP 127/70; BMI 33.7
== END ==
PROVIDERS: PCP Family Medicine; Visit Provider Thoracic Surgery (Cardiothoracic Vascular Surgery)
DX: E11.52 Type 2 diabetes mellitus with diabetic peripheral angiopathy with gangrene (principal); E11.621 Type 2 diabetes mellitus with foot ulcer; L97.411 Non-pressure chronic ulcer of right heel and midfoot limited to breakdown of skin
CPT/HCPCS: 11042; A6210

== ENCOUNTER 2023-06-28 10:36 | Outpatient (CLI) | payer MEDICAID, SELFPAY ==
[2023-03-20 16:35] VITALS: BP 127/70; BMI 33.7
[2023-06-28 11:24] LABS: Protein Urine Trace (Negative); Specific Gravity, Urine 1.015 (1.005-1.030); Urine Appearance Clear (CLEAR); Urine Color Yellow (Yellow); pH Urine 5 (5-7)
[2023-06-28 11:25] LABS: Add Urine Microscopic? YES; Bilirubin Urine Neg (Negative); Blood Urine 2+ (Negative); Glucose Urine UA 4+ (Normal); Ketones Urine Negative (Negative); Leukocyte Esterase Urine 1+ (Negative); Nitrate Urine Negative (Negative); Urobilinogen Urine Norm (Negative)
[2023-06-28 11:29] LABS: Add Urine Culture? No; Bacteria Urine TRACE /hpf; Mucus Urine 1+ /hpf; Squamous Epithelial Cell Urine 0-4 /hpf (0-5)
[2023-06-28 11:37] LABS: Albumin Level 3.9 g/dL (3.5-5.2); Anion Gap 17.3 (5-19); Blood Urea Nitrogen 40 mg/dL (8-23); Calcium 8.9 mg/dL (8.5-10.5); Carbon Dioxide 23 mmol/L (22-29); Chloride 109 mmol/L (98-107); Glomerular Filtration Rate 35.3 mL/min (90-130); Glucose 67 mg/dL (65-115); Magnesium 2.4 mg/dL (1.7-2.3); Osmolality Calculated 308 mOsm/kg (285-295); Phosphorus 3.6 mg/dL (2.5-4.5); Potassium 4.3 mmol/L (3.5-5.1); Sodium 145 mmol/L (136-145)
== END 2023-06-28 10:37 | disposition home or self-care (01) ==
LOC: LAB 10:43
PROVIDERS: PCP Family Medicine; Visit Provider Nurse Practitioner Gerontology
DX: N18.32 Chronic kidney disease, stage 3b (principal); E11.52 Type 2 diabetes mellitus with diabetic peripheral angiopathy with gangrene; E11.621 Type 2 diabetes mellitus with foot ulcer; L97.412 Non-pressure chronic ulcer of right heel and midfoot with fat layer exposed
CPT/HCPCS: 11042; 36415; 80048; 81001; 82040; 83735; 84100; 85018; A6210

== ENCOUNTER → 2023-07-12 11:00 | Outpatient (BNVA) | payer MEDICAID, SELFPAY ==
[2023-03-20 16:35] VITALS: BP 127/70; BMI 33.7
== END ==
PROVIDERS: PCP Family Medicine; Visit Provider Nurse Practitioner Family
DX: E11.621 Type 2 diabetes mellitus with foot ulcer (principal); E11.52 Type 2 diabetes mellitus with diabetic peripheral angiopathy with gangrene; L97.412 Non-pressure chronic ulcer of right heel and midfoot with fat layer exposed
CPT/HCPCS: 11042; 87070; 87075; 87077; 87186; 87205

== ENCOUNTER → 2023-07-19 09:45 | Outpatient (BNVA) | payer MEDICAID, SELFPAY ==
[2023-03-20 16:35] VITALS: BP 127/70; BMI 33.7
== END ==
PROVIDERS: PCP Family Medicine; Visit Provider Nurse Practitioner Family
DX: E11.52 Type 2 diabetes mellitus with diabetic peripheral angiopathy with gangrene (principal); E11.621 Type 2 diabetes mellitus with foot ulcer; L97.412 Non-pressure chronic ulcer of right heel and midfoot with fat layer exposed
CPT/HCPCS: 11042; A6219

== ENCOUNTER → 2023-08-17 09:08 | Outpatient (BNVA) | payer MEDICAID, SELFPAY ==
[2023-07-27 15:15] VITALS: BP 127/70; BMI 33.7
== END ==
PROVIDERS: PCP Family Medicine; Visit Provider Thoracic Surgery (Cardiothoracic Vascular Surgery)
DX: E11.52 Type 2 diabetes mellitus with diabetic peripheral angiopathy with gangrene (principal); E11.621 Type 2 diabetes mellitus with foot ulcer; L97.412 Non-pressure chronic ulcer of right heel and midfoot with fat layer exposed
CPT/HCPCS: 29445; A6251

== ENCOUNTER → 2023-08-23 08:59 | Outpatient (BNVA) | payer MEDICAID, SELFPAY ==
[2023-07-27 15:15] VITALS: BP 127/70; BMI 33.7
== END ==
PROVIDERS: PCP Family Medicine; Visit Provider Thoracic Surgery (Cardiothoracic Vascular Surgery)
DX: E11.52 Type 2 diabetes mellitus with diabetic peripheral angiopathy with gangrene (principal); E11.621 Type 2 diabetes mellitus with foot ulcer; L97.412 Non-pressure chronic ulcer of right heel and midfoot with fat layer exposed
CPT/HCPCS: 97597

== ENCOUNTER → 2023-08-24 11:25 | Outpatient (BNVA) | payer MEDICAID, SELFPAY ==
[2023-07-27 15:15] VITALS: BP 127/70; BMI 33.7
== END ==
PROVIDERS: PCP Family Medicine; Visit Provider Thoracic Surgery (Cardiothoracic Vascular Surgery)
DX: E11.52 Type 2 diabetes mellitus with diabetic peripheral angiopathy with gangrene (principal); E11.621 Type 2 diabetes mellitus with foot ulcer; L97.412 Non-pressure chronic ulcer of right heel and midfoot with fat layer exposed
CPT/HCPCS: 29445; A6210

== ENCOUNTER → 2023-08-30 10:54 | Outpatient (BNVA) | payer MEDICAID, SELFPAY ==
[2023-07-27 15:15] VITALS: BP 127/70; BMI 33.7
== END ==
PROVIDERS: PCP Family Medicine; Visit Provider Internal Medicine
DX: E11.42 Type 2 diabetes mellitus with diabetic polyneuropathy (principal); E78.2 Mixed hyperlipidemia; E03.9 Hypothyroidism, unspecified; D72.829 Elevated white blood cell count, unspecified; E11.52 Type 2 diabetes mellitus with diabetic peripheral angiopathy with gangrene; E11.621 Type 2 diabetes mellitus with foot ulcer; L97.411 Non-pressure chronic ulcer of right heel and midfoot limited to breakdown of skin; Z79.890 Hormone replacement therapy; Z79.4 Long term (current) use of insulin
CPT/HCPCS: 97597; 99214; A6219

== ENCOUNTER → 2023-09-06 10:20 | Outpatient (BNVA) | payer MEDICAID, SELFPAY ==
[2023-08-30 12:02] VITALS: BP 127/70; BMI 33.7
== END ==
PROVIDERS: PCP Family Medicine; Visit Provider Thoracic Surgery (Cardiothoracic Vascular Surgery)
DX: Z09 Encounter for follow-up examination after completed treatment for conditions other than malignant neoplasm (principal); Z87.2 Personal history of diseases of the skin and subcutaneous tissue
CPT/HCPCS: 99212; A6210

== ENCOUNTER → 2023-09-13 09:03 | Outpatient (BNVA) | payer MEDICAID, SELFPAY ==
[2023-09-13 09:30] VITALS: BP 127/70; BMI 33.7
== END ==
PROVIDERS: PCP Family Medicine; Visit Provider Podiatrist Foot & Ankle Surgery
DX: E11.42 Type 2 diabetes mellitus with diabetic polyneuropathy (principal); M20.41 Other hammer toe(s) (acquired), right foot; M14.672 Charcot's joint, left ankle and foot; Z79.4 Long term (current) use of insulin
CPT/HCPCS: 99213

== ENCOUNTER → 2023-10-04 09:44 | Outpatient (BNVA) | payer MEDICAID, SELFPAY ==
[2023-09-13 09:30] VITALS: BP 127/70; BMI 33.7
== END ==
PROVIDERS: PCP Family Medicine; Visit Provider Podiatrist Foot & Ankle Surgery
DX: E11.42 Type 2 diabetes mellitus with diabetic polyneuropathy; M20.41 Other hammer toe(s) (acquired), right foot; M14.672 Charcot's joint, left ankle and foot; Z79.4 Long term (current) use of insulin
CPT/HCPCS: 28010

== ENCOUNTER → 2023-10-18 10:46 | Outpatient (BNVA) | payer MEDICAID, SELFPAY ==
[2023-09-13 09:30] VITALS: BP 127/70; BMI 33.7
== END ==
PROVIDERS: PCP Family Medicine; Visit Provider Podiatrist Foot & Ankle Surgery
DX: E11.42 Type 2 diabetes mellitus with diabetic polyneuropathy (principal); M20.41 Other hammer toe(s) (acquired), right foot; M14.672 Charcot's joint, left ankle and foot; L97.512 Non-pressure chronic ulcer of other part of right foot with fat layer exposed; E11.621 Type 2 diabetes mellitus with foot ulcer; Z79.4 Long term (current) use of insulin
CPT/HCPCS: 29445

== ENCOUNTER 2023-10-24 15:09 | Outpatient (CLI) | payer MEDICAID, SELFPAY ==
[2023-09-13 09:30] VITALS: BP 127/70; BMI 33.7
[2023-10-24 15:58] LABS: Protein Urine Neg (Negative); Specific Gravity, Urine 1.015 (1.005-1.030); Urine Appearance SL Hazy (CLEAR); Urine Color Yellow (Yellow); pH Urine 5 (5-7)
[2023-10-24 15:59] LABS: Add Urine Microscopic? YES; Bilirubin Urine Neg (Negative); Blood Urine Neg (Negative); Glucose Urine UA 4+ (Normal); Ketones Urine Negative (Negative); Leukocyte Esterase Urine 1+ (Negative); Nitrate Urine Negative (Negative); Urobilinogen Urine Norm (Negative)
[2023-10-24 16:00] LABS: Anion Gap 14.9 (5-19); Blood Urea Nitrogen 29 mg/dL (8-23); Calcium 8.7 mg/dL (8.5-10.5); Carbon Dioxide 26 mmol/L (22-29); Chloride 105 mmol/L (98-107); Glomerular Filtration Rate 45.7 mL/min (90-130); Glucose 188 mg/dL (65-115); Magnesium 2.2 mg/dL (1.7-2.3); Osmolality Calculated 303 mOsm/kg (285-295); Phosphorus 3.4 mg/dL (2.5-4.5); Potassium 4.9 mmol/L (3.5-5.1); Sodium 141 mmol/L (136-145)
[2023-10-24 16:06] LABS: Bacteria Urine TRACE /hpf; Hyaline Casts Urine 15-25 /lpf; Mucus Urine 1+ /hpf; RBC Urine RARE /hpf (0-2); Squamous Epithelial Cell Urine 0-4 /hpf (0-5)
[2023-10-24 16:07] LABS: Add Urine Culture? No
== END 2023-10-24 15:10 | disposition home or self-care (01) ==
LOC: LAB 15:11
PROVIDERS: PCP Family Medicine; Visit Provider Nurse Practitioner Gerontology
DX: N18.32 Chronic kidney disease, stage 3b (principal)
CPT/HCPCS: 36415; 80048; 81001; 82040; 83735; 84100; 85018; 99213

== ENCOUNTER → 2024-04-02 09:20 | Outpatient (BNVA) | payer MEDICAID, SELFPAY ==
[2023-09-13 09:30] VITALS: BP 127/70; BMI 33.7
== END ==
PROVIDERS: PCP Family Medicine; Referring Provider Family Medicine; Visit Provider Internal Medicine
DX: E03.9 Hypothyroidism, unspecified (principal); E11.42 Type 2 diabetes mellitus with diabetic polyneuropathy; E78.2 Mixed hyperlipidemia; D72.829 Elevated white blood cell count, unspecified; Z79.4 Long term (current) use of insulin; Z79.890 Hormone replacement therapy
CPT/HCPCS: 99214

== ENCOUNTER → 2025-04-21 14:22 | Outpatient (BNVA) | payer OTHER, SELFPAY ==
[2024-05-14 09:46] VITALS: BP 94/47; BMI 35.2
== END ==
PROVIDERS: PCP Family Medicine; Visit Provider Psychiatry & Neurology Psychiatry
DX: F33.2 Major depressive disorder, recurrent severe without psychotic features (principal); F43.10 Post-traumatic stress disorder, unspecified
CPT/HCPCS: 80061; 83036